=== PATIENT | female | born 1945 | race American Indian/Alaskan Native ===

== ENCOUNTER 2019-01-02 06:26 | Inpatient (IN) | payer OTHER ==
[2019-01-03 06:56] VITALS: BMI 31.8
[2019-01-03] MEDS: oxyCODONE 10 mg Immediate Release Tab PO PRN ×3 (10:19→21:40)
[2019-01-03] MEDS: Enoxaparin 30 mg Syringe SC SCH (10:20)
[2019-01-03] MEDS: Pantoprazole 40 mg EC Tab PO SCH (10:22)
[2019-01-03] MEDS: Docusate-Senna 50 mg-8.6 mg Tab PO SCH (10:22)
[2019-01-03] MEDS: oxyCODONE 5 mg Immediate Release Tab PO PRN ×2 (12:42→18:08)
[2019-01-03 21:28] LABS: SQUAMOUS EPITHIAL 2 /hpf (0-5); URINE BACTERIA RARE (<OCC); URINE BILIRUBIN NEGATIVE (NEGATIVE); URINE BLOOD NEGATIVE (NEGATIVE); URINE CLARITY CLOUDY (Clear); URINE COLOR YELLOW (YELLOW); URINE GLUCOSE (UA) NEG (NEGATIVE); URINE LEUKOCYTE ESTERASE SMALL Leu/uL (Negative); URINE PROTEIN NEGATIVE (NEGATIVE); URINE UROBILINOGEN 0.2-1.0 mg/dL (0.2-1.0)
[2019-01-04] MEDS: oxyCODONE 10 mg Immediate Release Tab PO PRN ×2 (08:24→23:04)
[2019-01-04] MEDS: Enoxaparin 30 mg Syringe SC SCH (08:26)
[2019-01-04] MEDS: Pantoprazole 40 mg EC Tab PO SCH (08:27)
[2019-01-04] MEDS: Docusate-Senna 50 mg-8.6 mg Tab PO SCH (08:28)
--- NOTE | 2019-01-04 15:55 | RAD ---
Date of service: 01/04/2019 HISTORY: distention of abdomen COMPARISON: None available. FINDINGS: BOWEL: Bowel gas pattern suggests ileus. No obstruction. No free air. BONES: Normal. OTHER FINDINGS: Haziness in the pelvis likely represents a distended urinary bladder. IMPRESSION: No evidence of mechanical bowel obstruction, free air or other acute pathologic process.
[2019-01-04] MEDS ORDERED: Alum-Mag Hydrox-Simethicone Susp (30 mL) PO ONE (21:12)
[2019-01-04] MEDS: Sucralfate 1 gm/10 ml Oral Susp UD PO SCH (22:36)
[2019-01-05] MEDS: oxyCODONE 5 mg Immediate Release Tab PO PRN (01:38)
[2019-01-05] MEDS: oxyCODONE 10 mg Immediate Release Tab PO PRN ×3 (05:38→20:23)
[2019-01-05] MEDS: Sucralfate 1 gm/10 ml Oral Susp UD PO SCH ×4 (09:08→21:16)
[2019-01-05] MEDS: Enoxaparin 30 mg Syringe SC SCH (09:12)
[2019-01-05] MEDS: Docusate-Senna 50 mg-8.6 mg Tab PO SCH (09:13)
[2019-01-05] MEDS: Pantoprazole 40 mg EC Tab PO SCH (09:13)
--- NOTE | 2019-01-05 12:01 | CP.PCM.HP ---
History of Present Illness - History of Present Illness History of Present Illness: Chief complaint: Right total knee arthroplasty History of present illness A 73 years old female with a history of right knee degenerative joint disease, varus deformity and synovitis underwent right total knee arthroplasty and open synovectomy on 12/30/2018. Patient was transferred to [facility] for subacute rehab. Currently patient is complaining epigastric pain 7-9/10 continuous, associated with nausea and constipation. Patient is currently on pain medication with narcotics. Denies fever/chills, vomiting or abdominal distention. Patient was given PPI and Carafate with some relief. Present on Admission - Present on Admission Any Indicators Present on Admission: No Review of Systems - Review of Systems All systems: reviewed and no additional remarkable complaints except Review of Systems: As per HPI Past Patient History - Past Medical History & Family History Past Medical History?: Yes Past Family History: Reviewed and not pertinent - Past Social History Smoking Status: Former Smoker Alcohol: None Drugs: Denies - CARDIAC Hx Hypercholesterolemia: Yes Hx Hypertension: Yes - PULMONARY Hx Chronic Obstructive Pulmonary Disease (COPD): Yes - NEUROLOGICAL Hx Neurological Disorder: No - HEENT Hx HEENT Problems: Yes Hx Cataracts: Yes (BILAT.) - RENAL Hx Chronic Kidney Disease: No - ENDOCRINE/METABOLIC Hx Endocrine Disorders: No - HEMATOLOGICAL/ONCOLOGICAL Hx Blood Disorders: No - INTEGUMENTARY Hx Dermatological Problems: No - MUSCULOSKELETAL/RHEUMATOLOGICAL Hx Arthritis: Yes (osteoarthritis) - GASTROINTESTINAL Hx Gastrointestinal Disorders: Yes - GENITOURINARY/GYNECOLOGICAL Hx Genitourinary Disorders: Yes Other/Comment: HX: FIBROID UTERUS - PSYCHIATRIC Hx Psychophysiologic Disorder: No Hx Substance Use: No - SURGICAL HISTORY Hx Surgeries: Yes Hx Cataract Extraction: Yes (BILAT.) Hx Hysterectomy: Yes (PARTIAL HYSTERECTOMY) Other/Comment: HX: "INJECTIONS TO RIGHT HIP AND LOWER BACK FOR PAIN" - ANESTHESIA Hx Anesthesia: Yes Hx Anesthesia Reactions: No Hx Malignant Hyperthermia: No Meds Allergies/Adverse Reactions: Allergies Allergy/AdvReac Type Severity Reaction Status Date / Time aspirin Allergy Intermediate NAUSEA Verified 10/06/18 11:35 bacitracin Allergy Intermediate RASH Verified 10/06/18 11:35 [From Neosporin ([id number])] neomycin Allergy Intermediate RASH Verified 10/06/18 11:35 [From Neosporin ([id number])] polymyxin B Allergy Intermediate RASH Verified 10/06/18 11:35 [From Neosporin ([id number])] Physical Exam - Constitutional Appears: No Acute Distress - Head Exam Head Exam: ATRAUMATIC, NORMAL INSPECTION, NORMOCEPHALIC - Eye Exam Eye Exam: EOMI, Normal appearance, PERRL Pupil Exam: NORMAL ACCOMODATION, PERRL - ENT Exam ENT Exam: Mucous Membranes Moist, Normal Exam - Neck Exam Neck exam: Positive for: Normal Inspection - Respiratory Exam Respiratory Exam: Clear to Auscultation Bilateral, NORMAL BREATHING PATTERN - Cardiovascular Exam Cardiovascular Exam: REGULAR RHYTHM, +S1, +S2 - GI/Abdominal Exam GI & Abdominal Exam: Normal Bowel Sounds, Soft, Tenderness (epigastric) - Extremities Exam Extremities exam: Positive for: normal capillary refill, normal inspection - Back Exam Back exam: NORMAL INSPECTION - Neurological Exam Neurological exam: Alert, CN II-XII Intact, Normal Gait, Oriented x3, Reflexes Normal - Psychiatric Exam Psychiatric exam: Normal Affect, Normal Mood - Skin Skin Exam: Dry, Intact, Normal Color, Warm Results - Vital Signs Recent Vital Signs: Last Vital Signs Temp 98.4 F 01/05/19 09:05 Pulse 76 01/05/19 09:13 Resp 20 01/05/19 09:05 BP 118/66 01/05/19 09:13 Pulse Ox 98 01/05/19 09:05 - Labs Result Diagrams: 01/06/19 13:56 01/06/19 13:56 Assessment & Plan (1) Abdominal pain Assessment and Plan: Most likely acute gastritis Status: Acute (2) Acute blood loss anemia Status: Acute (3) Status post total right knee replacement Assessment and Plan: With right synovectomy Status: Acute - Assessment and Plan (Free Text) Plan: Protonix Carafate Lactulose Fleet enema as needed CBCs, CMP, lipase Physiatry consult PT OT DVT prophylaxis
--- NOTE | 2019-01-05 12:01 | CP.PCM.PN ---
Subjective - Date & Time of Evaluation Date of Evaluation: 01/04/19 Objective - Vital Signs/Intake and Output Vital Signs (last 24 hours): Temp Pulse Resp BP Pulse Ox 98.4 F 76 20 118/66 98 01/05/19 09:05 01/05/19 09:13 01/05/19 09:05 01/05/19 09:13 01/05/19 09:05 - Medications Medications: Current Medications Acetaminophen (Tylenol 325mg Tab) 975 mg PO Q8 [facility] Last Admin: 01/05/19 09:55 Dose: Not Given Amlodipine Besylate (Norvasc) 5 mg PO DAILY [facility] Last Admin: 01/05/19 09:13 Dose: 5 mg Ascorbic Acid (Vitamin C 500 Mg Tab) 1,000 mg PO DAILY [facility] Last Admin: 01/05/19 09:14 Dose: 1,000 mg Atorvastatin Calcium (Lipitor) 10 mg PO HS [facility] Last Admin: 01/04/19 22:38 Dose: 10 mg Ciprofloxacin (Cipro) 500 mg PO Q24H [facility]; Protocol Last Admin: 01/04/19 17:35 Dose: 500 mg Clonidine HCl (Catapres) 0.1 mg PO BID [facility] Last Admin: 01/05/19 09:09 Dose: 0.1 mg Ezetimibe (Zetia) 10 mg PO DAILY [facility] Last Admin: 01/05/19 09:14 Dose: 10 mg Enoxaparin Sodium (Lovenox) 30 mg SC DAILY [facility]; Protocol Last Admin: 01/05/19 09:12 Dose: 30 mg Ferrous Sulfate (Feosol) 325 mg PO BID [facility] Last Admin: 01/05/19 09:12 Dose: 325 mg Folic Acid (Folic Acid) 1 mg PO DAILY [facility] Last Admin: 01/05/19 09:12 Dose: 1 mg Lactulose (Enulose) 20 gm PO DAILY PRN PRN Reason: Constipation Last Admin: 01/03/19 21:38 Dose: 20 gm Losartan Potassium (Cozaar) 100 mg PO DAILY [facility] Last Admin: 01/05/19 09:12 Dose: 100 mg Ondansetron HCl (Zofran Inj) 4 mg IVP Q6 PRN PRN Reason: Nausea/Vomiting Last Admin: 01/04/19 13:21 Dose: 4 mg Oxycodone HCl (Oxycodone Immediate Release Tab) 5 mg PO Q4 PRN PRN Reason: Pain, Mild (1-3) Last Admin: 01/05/19 01:38 Dose: 5 mg Oxycodone HCl (Oxycodone Immediate Release Tab) 10 mg PO Q4 PRN PRN Reason: Pain, severe (8-10) Last Admin: 01/05/19 09:55 Dose: 10 mg Pantoprazole Sodium (Protonix Ec Tab) 40 mg PO DAILY [facility] Last Admin: 01/05/19 09:13 Dose: 40 mg Phenazopyridine HCl (Pyridium) 200 mg PO TID [facility] Stop: 01/05/19 23:59 Last Admin: 01/05/19 09:13 Dose: 200 mg Senna/Docusate Sodium (Senokot S 50 Mg-8.6 Mg) 1 tab PO DAILY [facility] Last Admin: 01/05/19 09:13 Dose: 1 tab Sucralfate (Carafate Oral Susp) [address] [facility] Last Admin: 01/05/19 09:08 Dose: Not Given
[2019-01-05 12:19] LABS: HEMOGLOBIN 8.6 g/dL (12.0-16.0); MEAN CELL VOLUME 81.4 fl (81.0-99.0); MEAN CORPUSCULAR HEMOGLOBIN 26.8 pg (27.0-31.0); MEAN CORPUSCULAR HGB CONC 32.9 g/dL (33.0-37.0); RBC 3.23 Mil/uL (3.80-5.20); RED CELL DISTRIBUTION WIDTH 13.5 % (11.5-14.5); WHITE BLOOD COUNT 7.6 K/uL (4.8-10.8)
[2019-01-05 12:27] LABS: CALCIUM 8.5 mg/dL (8.4-10.2)
--- NOTE | 2019-01-05 13:19 | CP.PCM.PN ---
Subjective - Date & Time of Evaluation Date of Evaluation: 01/05/19 Time of Evaluation: 13:17 - Subjective Subjective: Patient states she doesn't feel well. She is having watery stools and abdominal pain. She had nausea and vomiting, but that is now improving. Knee pain is controlled, tolerating PT well. Objective - Vital Signs/Intake and Output Vital Signs (last 24 hours): Temp Pulse Resp BP Pulse Ox 98.4 F 76 20 118/66 98 01/05/19 09:05 01/05/19 09:13 01/05/19 09:05 01/05/19 09:13 01/05/19 09:05 - Medications Medications: Current Medications Acetaminophen (Tylenol 325mg Tab) 975 mg PO Q8 [facility] Last Admin: 01/05/19 09:55 Dose: Not Given Amlodipine Besylate (Norvasc) 5 mg PO DAILY [facility] Last Admin: 01/05/19 09:13 Dose: 5 mg Ascorbic Acid (Vitamin C 500 Mg Tab) 1,000 mg PO DAILY [facility] Last Admin: 01/05/19 09:14 Dose: 1,000 mg Atorvastatin Calcium (Lipitor) 10 mg PO HS [facility] Last Admin: 01/04/19 22:38 Dose: 10 mg Ciprofloxacin (Cipro) 500 mg PO Q24H [facility]; Protocol Last Admin: 01/04/19 17:35 Dose: 500 mg Clonidine HCl (Catapres) 0.1 mg PO BID [facility] Last Admin: 01/05/19 09:09 Dose: 0.1 mg Ezetimibe (Zetia) 10 mg PO DAILY [facility] Last Admin: 01/05/19 09:14 Dose: 10 mg Enoxaparin Sodium (Lovenox) 30 mg SC DAILY [facility]; Protocol Last Admin: 01/05/19 09:12 Dose: 30 mg Ferrous Sulfate (Feosol) 325 mg PO BID [facility] Last Admin: 01/05/19 09:12 Dose: 325 mg Folic Acid (Folic Acid) 1 mg PO DAILY [facility] Last Admin: 01/05/19 09:12 Dose: 1 mg Lactulose (Enulose) 20 gm PO DAILY PRN PRN Reason: Constipation Last Admin: 01/03/19 21:38 Dose: 20 gm Losartan Potassium (Cozaar) 100 mg PO DAILY [facility] Last Admin: 01/05/19 09:12 Dose: 100 mg Ondansetron HCl (Zofran Inj) 4 mg IVP Q6 PRN PRN Reason: Nausea/Vomiting Last Admin: 01/04/19 13:21 Dose: 4 mg Oxycodone HCl (Oxycodone Immediate Release Tab) 5 mg PO Q4 PRN PRN Reason: Pain, Mild (1-3) Last Admin: 01/05/19 01:38 Dose: 5 mg Oxycodone HCl (Oxycodone Immediate Release Tab) 10 mg PO Q4 PRN PRN Reason: Pain, severe (8-10) Last Admin: 01/05/19 09:55 Dose: 10 mg Pantoprazole Sodium (Protonix Ec Tab) 40 mg PO DAILY [facility] Last Admin: 01/05/19 09:13 Dose: 40 mg Phenazopyridine HCl (Pyridium) 200 mg PO TID [facility] Stop: 01/05/19 23:59 Last Admin: 01/05/19 09:13 Dose: 200 mg Senna/Docusate Sodium (Senokot S 50 Mg-8.6 Mg) 1 tab PO DAILY [facility] Last Admin: 01/05/19 09:13 Dose: 1 tab Sucralfate (Carafate Oral Susp) 1 gm PO ACHS [facility] Last Admin: 01/05/19 12:04 Dose: 1 gm - Labs Labs: 01/05/19 12:05 01/05/19 12:05 - Extremities Exam Additional comments: RLE: dressing changed. Incision intact, dry mild incisional erythema, mild swelling, calves sfot NT neg homans +ROM ankle/toes, sensation intact, +Dp/PT pulses Assessment and Plan (1) Osteoarthritis of right knee Assessment & Plan: POD#6 s/p right TKR VTE proph PT/OT orthopedically stable ice labs ordered monitor h/h, Cr improving, BUN still high, Na normalized encourage PO intake abd xray reviewed, no ilius/obstruction/free air, likely secondary after enema d/w Dr. Hinkle, agrees with above Status: Acute (2) Acute blood loss anemia Assessment & Plan: f/u labs Status: Acute
--- NOTE | 2019-01-05 13:30 | CP.PCM.CON ---
History of Present Illness - History of Present Illness History of Present Illness: Dr Dominguez PMR consultation on Alysha Avalos, born 1945 who has been admitted to [facility] for [facility]ITLY[facility] following an elective right TKR. She has failed conservative and interventional care in the past. Post op pain is fairly well controlled. Review of Systems - Constitutional Constitutional: absent: Chills - EENT Eyes: absent: Change in Vision Ears: absent: Ear Discharge, Ear Pain Nose/Mouth/Throat: absent: Nasal Congestion, Nasal Discharge, Bleeding Gums - Cardiovascular Cardiovascular: absent: Chest Pain - Respiratory Respiratory: absent: Dyspnea, Hemoptysis - Gastrointestinal Gastrointestinal: Other (watery stool. ) - Integumentary Integumentary: absent: Bleeding Lesions - Neurological Neurological: absent: Abnormal Movements, Numbness Past Patient History - Past Medical History & Family History Past Medical History?: Yes - Past Social History Smoking Status: Former Smoker Alcohol: None Drugs: Denies Home Situation {Lives}: Alone (entry steps) - CARDIAC Hx Hypercholesterolemia: Yes Hx Hypertension: Yes - PULMONARY Hx Chronic Obstructive Pulmonary Disease (COPD): Yes - NEUROLOGICAL Hx Neurological Disorder: No - HEENT Hx HEENT Problems: Yes Hx Cataracts: Yes (BILAT.) - RENAL Hx Chronic Kidney Disease: No - ENDOCRINE/METABOLIC Hx Endocrine Disorders: No - HEMATOLOGICAL/ONCOLOGICAL Hx Blood Disorders: No - INTEGUMENTARY Hx Dermatological Problems: No - MUSCULOSKELETAL/RHEUMATOLOGICAL Hx Arthritis: Yes (osteoarthritis) - GASTROINTESTINAL Hx Gastrointestinal Disorders: Yes - GENITOURINARY/GYNECOLOGICAL Hx Genitourinary Disorders: Yes Other/Comment: HX: FIBROID UTERUS - PSYCHIATRIC Hx Psychophysiologic Disorder: No Hx Substance Use: No - SURGICAL HISTORY Hx Surgeries: Yes Hx Cataract Extraction: Yes (BILAT.) Hx Hysterectomy: Yes (PARTIAL HYSTERECTOMY) Other/Comment: HX: "INJECTIONS TO RIGHT HIP AND LOWER BACK FOR PAIN" - ANESTHESIA Hx Anesthesia: Yes Hx Anesthesia Reactions: No Hx Malignant Hyperthermia: No Meds Allergies/Adverse Reactions: Allergies Allergy/AdvReac Type Severity Reaction Status Date / Time aspirin Allergy Intermediate NAUSEA Verified 10/06/18 11:35 bacitracin Allergy Intermediate RASH Verified 10/06/18 11:35 [From Neosporin ([id number])] neomycin Allergy Intermediate RASH Verified 10/06/18 11:35 [From Neosporin ([id number])] polymyxin B Allergy Intermediate RASH Verified 10/06/18 11:35 [From Neosporin ([id number])] - Medications Medications: Current Medications Acetaminophen (Tylenol 325mg Tab) 975 mg PO Q8 [facility] Last Admin: 01/05/19 09:55 Dose: Not Given Amlodipine Besylate (Norvasc) 5 mg PO DAILY [facility] Last Admin: 01/05/19 09:13 Dose: 5 mg Ascorbic Acid (Vitamin C 500 Mg Tab) 1,000 mg PO DAILY [facility] Last Admin: 01/05/19 09:14 Dose: 1,000 mg Atorvastatin Calcium (Lipitor) 10 mg PO HS [facility] Last Admin: 01/04/19 22:38 Dose: 10 mg Ciprofloxacin (Cipro) 500 mg PO Q24H [facility]; Protocol Last Admin: 01/04/19 17:35 Dose: 500 mg Clonidine HCl (Catapres) 0.1 mg PO BID [facility] Last Admin: 01/05/19 09:09 Dose: 0.1 mg Ezetimibe (Zetia) 10 mg PO DAILY [facility] Last Admin: 01/05/19 09:14 Dose: 10 mg Enoxaparin Sodium (Lovenox) 30 mg SC DAILY [facility]; Protocol Last Admin: 01/05/19 09:12 Dose: 30 mg Ferrous Sulfate (Feosol) 325 mg PO BID [facility] Last Admin: 01/05/19 09:12 Dose: 325 mg Folic Acid (Folic Acid) 1 mg PO DAILY [facility] Last Admin: 01/05/19 09:12 Dose: 1 mg Lactulose (Enulose) 20 gm PO DAILY PRN PRN Reason: Constipation Last Admin: 01/03/19 21:38 Dose: 20 gm Losartan Potassium (Cozaar) 100 mg PO DAILY [facility] Last Admin: 01/05/19 09:12 Dose: 100 mg Ondansetron HCl (Zofran Inj) 4 mg IVP Q6 PRN PRN Reason: Nausea/Vomiting Last Admin: 01/04/19 13:21 Dose: 4 mg Oxycodone HCl (Oxycodone Immediate Release Tab) 5 mg PO Q4 PRN PRN Reason: Pain, Mild (1-3) Last Admin: 01/05/19 01:38 Dose: 5 mg Oxycodone HCl (Oxycodone Immediate Release Tab) 10 mg PO Q4 PRN PRN Reason: Pain, severe (8-10) Last Admin: 01/05/19 09:55 Dose: 10 mg Pantoprazole Sodium (Protonix Ec Tab) 40 mg PO DAILY [facility] Last Admin: 01/05/19 09:13 Dose: 40 mg Phenazopyridine HCl (Pyridium) 200 mg PO TID [facility] Stop: 01/05/19 23:59 Last Admin: 01/05/19 09:13 Dose: 200 mg Senna/Docusate Sodium (Senokot S 50 Mg-8.6 Mg) 1 tab PO DAILY [facility] Last Admin: 01/05/19 09:13 Dose: 1 tab Sucralfate (Carafate Oral Susp) 1 gm PO ACHS [facility] Last Admin: 01/05/19 12:04 Dose: 1 gm Physical Exam - Constitutional Appears: No Acute Distress - Head Exam Head Exam: ATRAUMATIC, NORMAL INSPECTION, NORMOCEPHALIC - Eye Exam Eye Exam: EOMI - ENT Exam ENT Exam: Mucous Membranes Moist - Respiratory Exam Respiratory Exam: NORMAL BREATHING PATTERN - Cardiovascular Exam Cardiovascular Exam: REGULAR RHYTHM - GI/Abdominal Exam GI & Abdominal Exam: Normal Bowel Sounds. absent: Firm, Guarding, Hernia - Neurological Exam Neurological exam: Alert, CN II-XII Intact, Oriented x3 - Psychiatric Exam Psychiatric exam: Normal Affect, Normal Mood - Skin Skin Exam: Warm Results - Vital Signs Recent Vital Signs: Last Vital Signs Temp 98.4 F 01/05/19 09:05 Pulse 76 01/05/19 09:13 Resp 20 01/05/19 09:05 BP 118/66 01/05/19 09:13 Pulse Ox 98 01/05/19 09:05 - Labs Result Diagrams: 01/05/19 12:05 01/05/19 12:05 Labs: Laboratory Results - last 24 hr 01/05/19 01/05/19 12:05 12:05 WBC 7.6 RBC 3.23 L Hgb 8.6 L Hct 26.3 L MCV 81.4 MCH 26.8 L MCHC 32.9 L RDW 13.5 Plt Count 302 Sodium 132 Potassium 3.5 L Chloride 90 L Carbon Dioxide 28 Anion Gap 18 BUN 30 H Creatinine 1.3 H Est GFR ( Amer) 49 Est GFR (Non-Af Amer) 40 Random Glucose 114 H Calcium 8.5 Assessment & Plan - Assessment and Plan (Free Text) Assessment: 73 year old female who is s/p right TKR, elective Pain is fairly well controlled has watery stool but she denies this is an actual bowel movement and feels she is more constipated than diarrhea. X-ray did not show evidence of any significant bowel obstruction. PT/OT to continue to help increase functional independence Team conference for d/c planning Pain: controlled Vascular: no evidence of DVT GI:appears to have loose BM but she claims is constipation. X-ray did not show evidence of SURY
[2019-01-05 19:43] VITALS: RESP 20
--- NOTE | 2019-01-06 00:06 | CP.PCM.PN ---
Subjective - Date & Time of Evaluation Date of Evaluation: 01/05/19 Time of Evaluation: 18:30 Objective - Vital Signs/Intake and Output Vital Signs (last 24 hours): Temp Pulse Resp BP Pulse Ox 98.7 F 71 20 144/69 94 L 01/05/19 19:42 01/05/19 19:42 01/05/19 19:42 01/05/19 19:42 01/05/19 19:42 - Medications Medications: Current Medications Acetaminophen (Tylenol 325mg Tab) 975 mg PO Q8 [facility] Last Admin: 01/05/19 17:04 Dose: 975 mg Amlodipine Besylate (Norvasc) 5 mg PO DAILY [facility] Last Admin: 01/05/19 09:13 Dose: 5 mg Ascorbic Acid (Vitamin C 500 Mg Tab) 1,000 mg PO DAILY [facility] Last Admin: 01/05/19 09:14 Dose: 1,000 mg Atorvastatin Calcium (Lipitor) 10 mg PO HS [facility] Last Admin: 01/05/19 21:16 Dose: 10 mg Ciprofloxacin (Cipro) 500 mg PO Q24H [facility]; Protocol Last Admin: 01/05/19 17:02 Dose: 500 mg Clonidine HCl (Catapres) 0.1 mg PO BID [facility] Last Admin: 01/05/19 17:02 Dose: 0.1 mg Ezetimibe (Zetia) 10 mg PO DAILY [facility] Last Admin: 01/05/19 09:14 Dose: 10 mg Enoxaparin Sodium (Lovenox) 30 mg SC DAILY [facility]; Protocol Last Admin: 01/05/19 09:12 Dose: 30 mg Ferrous Sulfate (Feosol) 325 mg PO BID [facility] Last Admin: 01/05/19 17:02 Dose: 325 mg Folic Acid (Folic Acid) 1 mg PO DAILY [facility] Last Admin: 01/05/19 09:12 Dose: 1 mg Lactulose (Enulose) 20 gm PO DAILY PRN PRN Reason: Constipation Last Admin: 01/03/19 21:38 Dose: 20 gm Losartan Potassium (Cozaar) 100 mg PO DAILY [facility] Last Admin: 01/05/19 09:12 Dose: 100 mg Ondansetron HCl (Zofran Inj) 4 mg IVP Q6 PRN PRN Reason: Nausea/Vomiting Last Admin: 01/04/19 13:21 Dose: 4 mg Oxycodone HCl (Oxycodone Immediate Release Tab) 5 mg PO Q4 PRN PRN Reason: Pain, Mild (1-3) Last Admin: 01/05/19 01:38 Dose: 5 mg Oxycodone HCl (Oxycodone Immediate Release Tab) 10 mg PO Q4 PRN PRN Reason: Pain, severe (8-10) Last Admin: 01/05/19 20:23 Dose: 10 mg Pantoprazole Sodium (Protonix Ec Tab) 40 mg PO DAILY [facility] Last Admin: 01/05/19 09:13 Dose: 40 mg Senna/Docusate Sodium (Senokot S 50 Mg-8.6 Mg) 1 tab PO DAILY [facility] Last Admin: 01/05/19 09:13 Dose: 1 tab Sucralfate (Carafate Oral Susp) 1 gm PO ACHS [facility] Last Admin: 01/05/19 21:16 Dose: 1 gm - Labs Labs: 01/05/19 12:05 01/05/19 12:05
[2019-01-06] MEDS: oxyCODONE 10 mg Immediate Release Tab PO PRN (01:53)
[2019-01-06] MEDS ORDERED: Potassium Ch 20mEq in D5-1/2NS 1,000 ML IV SCH ×3 (04:45→06:06)
--- NOTE | 2019-01-06 05:08 | CP.PCM.PCO ---
Addendum Addendum: 01/06/19 04:46 The life insurance underwriter was called on this 73 y/o F due to intolerable lower abdominal pain. Pt described pain as cramping and sharp, 10/10 intensity, radiated to her back and aggravated with bearing down to urinate or passing gas. Pt reports unable to have a BM since 1 week ago. Pt was given 10mg of Oxycodone ~3 hours ago with aggravation of pain. Pt was given laxatives yesterday. Pt is unable to pass gasses due to pain. Pt afebrile tolerating PO. --Vital signs unremarkable --Physical exam: Pt lying down, uncomfortable, in excruciating abdominal pain; abdomen is soft, non-distended, very tender on b/l lower quadrants, hyperactive bowel sounds. PLAN: (restricted assessment of patient since no completed H&P) >73 y/o F with presumed PMHx of HTN, COPD, HLD admitted to TCU s/p TKR, complains of intolerable lower abdominal pain and not controlled with opioid. --Will order IV Toradol and PO Bentyl. --IV Fluids: D5-1/2NS-20mEq KCL at 180mL/hr. (Even though increased creatinine and reduced GFR, there is NO apparent Hx of renal failure. Abnormal renal function test may be due to YAA caused by dehydration. IV fluids ordered. No apparent Hx of CHF; hence fluids will run at 1.5x maintenance. Will add potassium to IV fluids since mild hypokalemia yesterday labs. Opioid aggravated pain, which may have caused more constipation)
[2019-01-06] MEDS: Sucralfate 1 gm/10 ml Oral Susp UD PO SCH ×4 (06:29→21:16)
[2019-01-06] MEDS: Enoxaparin 30 mg Syringe SC SCH (09:29)
[2019-01-06] MEDS: Docusate-Senna 50 mg-8.6 mg Tab PO SCH ×2 (09:31→21:16)
[2019-01-06] MEDS: Pantoprazole 40 mg EC Tab PO SCH (09:31)
--- NOTE | 2019-01-06 13:26 | CP.PCM.PN ---
Subjective - Date & Time of Evaluation Date of Evaluation: 01/06/19 Time of Evaluation: 13:24 - Subjective Subjective: Patient seen and examined at bedside. Pain at knee well controlled. C/o lower abdominal pain, no longer vomitting, loose stools following enema x 2. Tolerating PT and CPM well. Objective - Vital Signs/Intake and Output Vital Signs (last 24 hours): Temp Pulse Resp BP Pulse Ox 98.1 F 80 20 149/67 95 01/06/19 09:00 01/06/19 10:00 01/06/19 09:00 01/06/19 09:31 01/06/19 10:00 - Medications Medications: Current Medications Acetaminophen (Tylenol 325mg Tab) 975 mg PO Q8 [facility] Last Admin: 01/06/19 09:37 Dose: 975 mg Amlodipine Besylate (Norvasc) 5 mg PO DAILY [facility] Last Admin: 01/06/19 09:31 Dose: 5 mg Ascorbic Acid (Vitamin C 500 Mg Tab) 1,000 mg PO DAILY [facility] Last Admin: 01/06/19 09:29 Dose: 1,000 mg Atorvastatin Calcium (Lipitor) 10 mg PO HS [facility] Last Admin: 01/05/19 21:16 Dose: 10 mg Ciprofloxacin (Cipro) 500 mg PO Q24H [facility]; Protocol Last Admin: 01/05/19 17:02 Dose: 500 mg Clonidine HCl (Catapres) 0.1 mg PO BID [facility] Last Admin: 01/06/19 09:30 Dose: 0.1 mg Ezetimibe (Zetia) 10 mg PO DAILY [facility] Last Admin: 01/06/19 09:31 Dose: 10 mg Enoxaparin Sodium (Lovenox) 30 mg SC DAILY [facility]; Protocol Last Admin: 01/06/19 09:29 Dose: 30 mg Ferrous Sulfate (Feosol) 325 mg PO BID [facility] Last Admin: 01/06/19 09:36 Dose: 325 mg Folic Acid (Folic Acid) 1 mg PO DAILY [facility] Last Admin: 01/06/19 09:32 Dose: 1 mg Potassium Chloride/Dextrose/Sod Cl (Potassium Chl 20 Meq In D5-1/2ns) 1,000 mls @ 110 mls/hr IV .Q9H6M [facility] Stop: 01/06/19 15:11 Last Admin: 01/06/19 06:14 Dose: 110 mls/hr Lactulose (Enulose) 20 gm PO DAILY PRN PRN Reason: Constipation Last Admin: 01/03/19 21:38 Dose: 20 gm Losartan Potassium (Cozaar) 100 mg PO DAILY [facility] Last Admin: 01/06/19 09:29 Dose: 100 mg Ondansetron HCl (Zofran Inj) 4 mg IVP Q6 PRN PRN Reason: Nausea/Vomiting Last Admin: 01/06/19 11:01 Dose: 4 mg Oxycodone HCl (Oxycodone Immediate Release Tab) 5 mg PO Q4 PRN PRN Reason: Pain, Mild (1-3) Last Admin: 01/05/19 01:38 Dose: 5 mg Oxycodone HCl (Oxycodone Immediate Release Tab) 10 mg PO Q4 PRN PRN Reason: Pain, severe (8-10) Last Admin: 01/06/19 01:53 Dose: 10 mg Pantoprazole Sodium (Protonix Ec Tab) 40 mg PO DAILY [facility] Last Admin: 01/06/19 09:31 Dose: 40 mg Senna/Docusate Sodium (Senokot S 50 Mg-8.6 Mg) 1 tab PO DAILY [facility] Last Admin: 01/06/19 09:31 Dose: 1 tab Senna/Docusate Sodium (Senokot S 50 Mg-8.6 Mg) 2 tab PO HS [facility] Sucralfate (Carafate Oral Susp) 1 gm PO ACHS [facility] Last Admin: 01/06/19 12:49 Dose: 1 gm - Labs Labs: 01/05/19 12:05 01/05/19 12:05 - Extremities Exam Additional comments: R knee: Dressings CDI minimal knee tenderness ROM 0-70 deg measured by goniometer sensation intact SP/DP/TN motor intact EHL/FHL/TA/G/Q/HS pedal pulse intact calves soft NT Assessment and Plan (1) Status post total right knee replacement Assessment & Plan: POD#7 s/p R TKA -will give simethicone for abdominal pain -PT/OT -CPM/knee imm as per order -DVT ppx -above d/w Dr. Hinkle in agreement Status: Acute
[2019-01-06] MEDS ORDERED: Simethicone 80 mg Chewtab PO PRN (13:35)
[2019-01-06 14:31] LABS: ALB/GLOB RATIO 0.9 (1.0-2.1); CALCIUM 8.6 mg/dL (8.4-10.2)
[2019-01-06 14:34] LABS: BASO # 0.1 K/uL (0.0-0.2); BASO % 0.7 % (0.0-2.0); EOS # 0.1 K/uL (0.0-0.7); EOS % 0.8 % (0.0-4.0); HEMOGLOBIN 8.3 g/dL (12.0-16.0); MEAN CELL VOLUME 82.8 fl (81.0-99.0); MEAN CORPUSCULAR HGB CONC 32.7 g/dL (33.0-37.0); MONO # 1.4 K/uL (0.0-0.8); MONO % 15.8 % (0.0-10.0); NEUT # 6.2 K/uL (1.8-7.0); NEUT % 71.7 % (50.0-75.0); NRBC % 0.2 % (0.0-0.0); RBC 3.08 Mil/uL (3.80-5.20); RED CELL DISTRIBUTION WIDTH 13.7 % (11.5-14.5); WHITE BLOOD COUNT 8.7 K/uL (4.8-10.8)
[2019-01-06] MEDS: Sodium Chloride 0.9% 1,000 ML IV SCH (16:37)
--- NOTE | 2019-01-06 17:34 | CP.PCM.PN ---
Subjective - Date & Time of Evaluation Date of Evaluation: 01/06/19 Time of Evaluation: 17:33 - Subjective Subjective: Alysha Avalos, born 1945 who has been admitted to [facility] for CAITLYN following an elective right TKR. She has failed conservative and interventional care in the past. Post op pain is fairly well controlled. Still having bowel issues and has had multiple fleets enemas and oral meds. nursing reports increasing amounts of stool but pasty not formed. x-ray was negative for obstruction Objective - Vital Signs/Intake and Output Vital Signs (last 24 hours): Temp Pulse Resp BP Pulse Ox 98.1 F 72 20 149/53 L 95 01/06/19 09:00 01/06/19 16:38 01/06/19 09:00 01/06/19 16:38 01/06/19 10:00 - Medications Medications: Current Medications Acetaminophen (Tylenol 325mg Tab) 975 mg PO Q8 [facility] Last Admin: 01/06/19 16:42 Dose: 975 mg Amlodipine Besylate (Norvasc) 5 mg PO DAILY [facility] Last Admin: 01/06/19 09:31 Dose: 5 mg Ascorbic Acid (Vitamin C 500 Mg Tab) 1,000 mg PO DAILY [facility] Last Admin: 01/06/19 09:29 Dose: 1,000 mg Atorvastatin Calcium (Lipitor) 10 mg PO HS [facility] Last Admin: 01/05/19 21:16 Dose: 10 mg Ciprofloxacin (Cipro) 500 mg PO Q24H [facility]; Protocol Last Admin: 01/06/19 17:03 Dose: 500 mg Clonidine HCl (Catapres) 0.1 mg PO BID [facility] Last Admin: 01/06/19 16:38 Dose: 0.1 mg Ezetimibe (Zetia) 10 mg PO DAILY [facility] Last Admin: 01/06/19 09:31 Dose: 10 mg Enoxaparin Sodium (Lovenox) 30 mg SC DAILY [facility]; Protocol Last Admin: 01/06/19 09:29 Dose: 30 mg Ferrous Sulfate (Feosol) 325 mg PO BID [facility] Last Admin: 01/06/19 16:42 Dose: 325 mg Folic Acid (Folic Acid) 1 mg PO DAILY [facility] Last Admin: 01/06/19 09:32 Dose: 1 mg Sodium Chloride (Sodium Chloride 0.9%) 1,000 mls @ 100 mls/hr IV .Q10H [facility] Stop: 01/08/19 15:29 Last Admin: 01/06/19 16:37 Dose: 100 mls/hr Lactulose (Enulose) 20 gm PO DAILY PRN PRN Reason: Constipation Last Admin: 01/03/19 21:38 Dose: 20 gm Losartan Potassium (Cozaar) 100 mg PO DAILY [facility] Last Admin: 01/06/19 09:29 Dose: 100 mg Ondansetron HCl (Zofran Inj) 4 mg IVP Q6 PRN PRN Reason: Nausea/Vomiting Last Admin: 01/06/19 11:01 Dose: 4 mg Oxycodone HCl (Oxycodone Immediate Release Tab) 5 mg PO Q4 PRN PRN Reason: Pain, Mild (1-3) Last Admin: 01/05/19 01:38 Dose: 5 mg Oxycodone HCl (Oxycodone Immediate Release Tab) 10 mg PO Q4 PRN PRN Reason: Pain, severe (8-10) Last Admin: 01/06/19 01:53 Dose: 10 mg Pantoprazole Sodium (Protonix Ec Tab) 40 mg PO DAILY [facility] Last Admin: 01/06/19 09:31 Dose: 40 mg Senna/Docusate Sodium (Senokot S 50 Mg-8.6 Mg) 1 tab PO DAILY [facility] Last Admin: 01/06/19 09:31 Dose: 1 tab Senna/Docusate Sodium (Senokot S 50 Mg-8.6 Mg) 2 tab PO HS [facility] Simethicone (Mylicon Chew Tab) 80 mg PO Q8 PRN PRN Reason: Flatulence Sucralfate (Carafate Oral Susp) 1 gm PO ACHS [facility] Last Admin: 01/06/19 16:37 Dose: 1 gm - Labs Labs: 01/06/19 13:56 01/06/19 13:56 - Constitutional Appears: Other (not comfortable and states has abdominal discomfort) - Head Exam Head Exam: ATRAUMATIC, NORMAL INSPECTION, NORMOCEPHALIC - Eye Exam Eye Exam: EOMI - ENT Exam ENT Exam: Mucous Membranes Moist - Respiratory Exam Respiratory Exam: NORMAL BREATHING PATTERN - Cardiovascular Exam Cardiovascular Exam: REGULAR RHYTHM - GI/Abdominal Exam GI & Abdominal Exam: Distended, Tenderness. absent: Guarding - Neurological Exam Neurological Exam: Alert, CN II-XII Intact Assessment and Plan - Assessment and Plan (Free Text) Assessment: 73 year old female s/p right TKR PT/OT to continue to help increase functional independence Team conference for d/c planning Pain: controlled Vascular: no evidence of DVT GI: + stool with enema and oral meds but still with discomfort. x-ray negative for obstruction Patient continues to be an excellent TCU rehabilitation candidate and will have continued focused PT, OT and recreational therapy to help facilitate a safe and appropriate d/c plan
[2019-01-07] MEDS: Sodium Chloride 0.9% 1,000 ML IV SCH ×2 (00:32→11:27)
[2019-01-07] MEDS: oxyCODONE 10 mg Immediate Release Tab PO PRN ×3 (01:00→16:32)
[2019-01-07] MEDS: Sucralfate 1 gm/10 ml Oral Susp UD PO SCH ×4 (06:53→22:47)
[2019-01-07] MEDS: Enoxaparin 30 mg Syringe SC SCH (09:04)
[2019-01-07] MEDS: Pantoprazole 40 mg EC Tab PO SCH (09:06)
--- NOTE | 2019-01-07 09:10 | CP.PCM.PN ---
Subjective - Date & Time of Evaluation Date of Evaluation: 01/07/19 Time of Evaluation: 08:30 - Subjective Subjective: Patient seen and examined at bedside. Pain well controlled for R knee. C/o severe abdominal pain despite enema x2 and stool softeners. Improved N/V. Objective - Vital Signs/Intake and Output Vital Signs (last 24 hours): Temp Pulse Resp BP Pulse Ox 98.6 F 76 20 169/65 H 100 01/07/19 08:08 01/07/19 08:08 01/07/19 08:08 01/07/19 08:08 01/07/19 08:08 - Medications Medications: Current Medications Acetaminophen (Tylenol 325mg Tab) 975 mg PO Q8 [facility] Last Admin: 01/07/19 00:20 Dose: Not Given Amlodipine Besylate (Norvasc) 5 mg PO DAILY [facility] Last Admin: 01/06/19 09:31 Dose: 5 mg Ascorbic Acid (Vitamin C 500 Mg Tab) 1,000 mg PO DAILY [facility] Last Admin: 01/06/19 09:29 Dose: 1,000 mg Atorvastatin Calcium (Lipitor) 10 mg PO HS [facility] Last Admin: 01/06/19 21:15 Dose: 10 mg Ciprofloxacin (Cipro) 500 mg PO Q24H [facility]; Protocol Last Admin: 01/06/19 17:03 Dose: 500 mg Clonidine HCl (Catapres) 0.1 mg PO BID [facility] Last Admin: 01/06/19 16:38 Dose: 0.1 mg Ezetimibe (Zetia) 10 mg PO DAILY [facility] Last Admin: 01/06/19 09:31 Dose: 10 mg Enoxaparin Sodium (Lovenox) 30 mg SC DAILY [facility]; Protocol Last Admin: 01/06/19 09:29 Dose: 30 mg Ferrous Sulfate (Feosol) 325 mg PO BID [facility] Last Admin: 01/06/19 16:42 Dose: 325 mg Folic Acid (Folic Acid) 1 mg PO DAILY [facility] Last Admin: 01/06/19 09:32 Dose: 1 mg Sodium Chloride (Sodium Chloride 0.9%) 1,000 mls @ 100 mls/hr IV .Q10H [facility] Stop: 01/08/19 15:29 Last Admin: 01/07/19 00:32 Dose: 100 mls/hr Lactulose (Enulose) 20 gm PO DAILY PRN PRN Reason: Constipation Last Admin: 01/03/19 21:38 Dose: 20 gm Losartan Potassium (Cozaar) 100 mg PO DAILY [facility] Last Admin: 01/06/19 09:29 Dose: 100 mg Ondansetron HCl (Zofran Inj) 4 mg IVP Q6 PRN PRN Reason: Nausea/Vomiting Last Admin: 01/06/19 11:01 Dose: 4 mg Oxycodone HCl (Oxycodone Immediate Release Tab) 5 mg PO Q4 PRN PRN Reason: Pain, Mild (1-3) Last Admin: 01/05/19 01:38 Dose: 5 mg Oxycodone HCl (Oxycodone Immediate Release Tab) 10 mg PO Q4 PRN PRN Reason: Pain, severe (8-10) Last Admin: 01/07/19 01:00 Dose: 10 mg Pantoprazole Sodium (Protonix Ec Tab) 40 mg PO DAILY [facility] Last Admin: 01/06/19 09:31 Dose: 40 mg Senna/Docusate Sodium (Senokot S 50 Mg-8.6 Mg) 1 tab PO DAILY [facility] Last Admin: 01/06/19 09:31 Dose: 1 tab Senna/Docusate Sodium (Senokot S 50 Mg-8.6 Mg) 2 tab PO HS [facility] Last Admin: 01/06/19 21:16 Dose: 2 tab Simethicone (Mylicon Chew Tab) 80 mg PO Q8 PRN PRN Reason: Flatulence Sucralfate (Carafate Oral Susp) 1 gm PO ACHS [facility] Last Admin: 01/07/19 06:53 Dose: 1 gm - Labs Labs: 01/06/19 13:56 01/06/19 13:56 - Extremities Exam Additional comments: R knee: Dressings CDI minimal knee tenderness ROM 0-70 deg measured by goniometer sensation intact SP/DP/TN motor intact EHL/FHL/TA/G/Q/HS pedal pulse intact calves soft NT Assessment and Plan (1) Status post total right knee replacement Assessment & Plan: POD#8 s/p R TKA -General surgery consult ordered for abd pain -PT/OT -CPM/knee imm as per order -DVT ppx -above d/w Dr. Hinkle in agreement Status: Acute
[2019-01-07] MEDS: Docusate-Senna 50 mg-8.6 mg Tab PO SCH ×2 (09:11→23:37)
--- NOTE | 2019-01-07 17:56 | CP.PCM.PN ---
Subjective - Date & Time of Evaluation Date of Evaluation: 01/07/19 Time of Evaluation: 17:55 - Subjective Subjective: patient feels a little better today denies sob/cp had a BM pain in leg is fairly well controlled Objective - Vital Signs/Intake and Output Vital Signs (last 24 hours): Temp Pulse Resp BP Pulse Ox 98.9 F 67 20 162/67 H 100 01/07/19 17:01 01/07/19 17:01 01/07/19 17:01 01/07/19 17:01 01/07/19 17:01 - Medications Medications: Current Medications Acetaminophen (Tylenol 325mg Tab) 975 mg PO Q8 [facility] Last Admin: 01/07/19 16:35 Dose: Not Given Amlodipine Besylate (Norvasc) 5 mg PO DAILY [facility] Last Admin: 01/07/19 09:06 Dose: 5 mg Ascorbic Acid (Vitamin C 500 Mg Tab) 1,000 mg PO DAILY [facility] Last Admin: 01/07/19 09:05 Dose: 1,000 mg Atorvastatin Calcium (Lipitor) 10 mg PO HS [facility] Last Admin: 01/06/19 21:15 Dose: 10 mg Ciprofloxacin (Cipro) 500 mg PO Q24H [facility]; Protocol Last Admin: 01/06/19 17:03 Dose: 500 mg Clonidine HCl (Catapres) 0.1 mg PO BID [facility] Last Admin: 01/07/19 16:35 Dose: 0.1 mg Ezetimibe (Zetia) 10 mg PO DAILY [facility] Last Admin: 01/07/19 09:08 Dose: 10 mg Enoxaparin Sodium (Lovenox) 30 mg SC DAILY [facility]; Protocol Last Admin: 01/07/19 09:04 Dose: 30 mg Ferrous Sulfate (Feosol) 325 mg PO BID [facility] Last Admin: 01/07/19 16:33 Dose: 325 mg Folic Acid (Folic Acid) 1 mg PO DAILY [facility] Last Admin: 01/07/19 09:07 Dose: 1 mg Sodium Chloride (Sodium Chloride 0.9%) 1,000 mls @ 100 mls/hr IV .Q10H [facility] Stop: 01/08/19 15:29 Last Admin: 01/07/19 11:27 Dose: Not Given Lactulose (Enulose) 20 gm PO DAILY PRN PRN Reason: Constipation Last Admin: 01/03/19 21:38 Dose: 20 gm Losartan Potassium (Cozaar) 100 mg PO DAILY [facility] Last Admin: 01/07/19 09:08 Dose: 100 mg Ondansetron HCl (Zofran Inj) 4 mg IVP Q6 PRN PRN Reason: Nausea/Vomiting Last Admin: 01/06/19 11:01 Dose: 4 mg Oxycodone HCl (Oxycodone Immediate Release Tab) 5 mg PO Q4 PRN PRN Reason: Pain, Mild (1-3) Last Admin: 01/05/19 01:38 Dose: 5 mg Oxycodone HCl (Oxycodone Immediate Release Tab) 10 mg PO Q4 PRN PRN Reason: Pain, severe (8-10) Last Admin: 01/07/19 16:32 Dose: 10 mg Pantoprazole Sodium (Protonix Ec Tab) 40 mg PO DAILY [facility] Last Admin: 01/07/19 09:06 Dose: 40 mg Senna/Docusate Sodium (Senokot S 50 Mg-8.6 Mg) 1 tab PO DAILY [facility] Last Admin: 01/07/19 09:11 Dose: 1 tab Senna/Docusate Sodium (Senokot S 50 Mg-8.6 Mg) 2 tab PO HS [facility] Last Admin: 01/06/19 21:16 Dose: 2 tab Simethicone (Mylicon Chew Tab) 80 mg PO Q8 PRN PRN Reason: Flatulence Last Admin: 01/07/19 09:05 Dose: 80 mg Sucralfate (Carafate Oral Susp) 1 gm PO ACHS [facility] Last Admin: 01/07/19 16:32 Dose: 1 gm - Labs Labs: 01/06/19 13:56 01/06/19 13:56 - Constitutional Appears: Well, Non-toxic, No Acute Distress - Head Exam Head Exam: ATRAUMATIC, NORMAL INSPECTION, NORMOCEPHALIC - Eye Exam Eye Exam: EOMI Pupil Exam: NORMAL ACCOMODATION - ENT Exam ENT Exam: Mucous Membranes Moist - Respiratory Exam Respiratory Exam: NORMAL BREATHING PATTERN - Cardiovascular Exam Cardiovascular Exam: REGULAR RHYTHM - GI/Abdominal Exam GI & Abdominal Exam: Distended. absent: Guarding - Neurological Exam Neurological Exam: Alert, Awake, CN II-XII Intact - Psychiatric Exam Psychiatric exam: Normal Affect, Normal Mood - Skin Skin Exam: Warm Assessment and Plan - Assessment and Plan (Free Text) Assessment: Alysha White, born 1945 who has been admitted to [facility] for CAITLYN following an elective right TKR. She has failed conservative and interventional care in the past. Post op pain is fairly well controlled. PT/OT to continue to help increase functional independence Pain: controlled Vascular: no evidence of DVT GI: No evidence of constipation or diarrhea today and doing better Patient continues to be an excellent TCU rehabilitation candidate and will have continued focused PT, OT and recreational therapy to help facilitate a safe and appropriate d/c plan
--- NOTE | 2019-01-07 20:03 | CP.PCM.CON ---
History of Present Illness - History of Present Illness History of Present Illness: 73F w/ PMHx of HTN, hyperlipidemia, presented to [facility] for elective right TKR. General surgery consulted for abdominal pain. Patient was found to have an elevated lipase. She has been complaining of epigastric pain for the past three days. Patient reports having a bout of non bloody emesis yesterday. She reports pain along epigastrium as well as mid lower abdominal region. Patient reports passing flatus but has not had a normal BM. Patient has been given enemas and as per patient she's only had liquid BM with scant formed stool once enema is given. Patient reports feeling better today. She denies headache/dizziness, chest pain, SOB, dysuria, hematochezia. PMHx: as stated above PSurgHx: hysterectomy (1981) Allergies: aspirin, bacitracin, neomycin, polymixin B Meds: as per MAR Review of Systems - Review of Systems All systems: reviewed and no additional remarkable complaints except Review of Systems: as stated in HPI Past Patient History - Past Medical History & Family History Past Medical History?: Yes - Past Social History Smoking Status: Former Smoker Alcohol: None Drugs: Denies Home Situation {Lives}: Alone (entry steps) - CARDIAC Hx Hypercholesterolemia: Yes Hx Hypertension: Yes - PULMONARY Hx Chronic Obstructive Pulmonary Disease (COPD): Yes - NEUROLOGICAL Hx Neurological Disorder: No - HEENT Hx HEENT Problems: Yes Hx Cataracts: Yes (BILAT.) - RENAL Hx Chronic Kidney Disease: No - ENDOCRINE/METABOLIC Hx Endocrine Disorders: No - HEMATOLOGICAL/ONCOLOGICAL Hx Blood Disorders: No - INTEGUMENTARY Hx Dermatological Problems: No - MUSCULOSKELETAL/RHEUMATOLOGICAL Hx Arthritis: Yes (osteoarthritis) - GASTROINTESTINAL Hx Gastrointestinal Disorders: Yes - GENITOURINARY/GYNECOLOGICAL Hx Genitourinary Disorders: Yes Other/Comment: HX: FIBROID UTERUS - PSYCHIATRIC Hx Psychophysiologic Disorder: No Hx Substance Use: No - SURGICAL HISTORY Hx Surgeries: Yes Hx Cataract Extraction: Yes (BILAT.) Hx Hysterectomy: Yes (PARTIAL HYSTERECTOMY) Other/Comment: HX: "INJECTIONS TO RIGHT HIP AND LOWER BACK FOR PAIN" - ANESTHESIA Hx Anesthesia: Yes Hx Anesthesia Reactions: No Hx Malignant Hyperthermia: No Meds Allergies/Adverse Reactions: Allergies Allergy/AdvReac Type Severity Reaction Status Date / Time aspirin Allergy Intermediate NAUSEA Verified 10/06/18 11:35 bacitracin Allergy Intermediate RASH Verified 10/06/18 11:35 [From Neosporin ([id number])] neomycin Allergy Intermediate RASH Verified 10/06/18 11:35 [From Neosporin ([id number])] polymyxin B Allergy Intermediate RASH Verified 10/06/18 11:35 [From Neosporin ([id number])] - Medications Medications: Current Medications Acetaminophen (Tylenol 325mg Tab) 975 mg PO Q8 [facility] Last Admin: 01/07/19 16:35 Dose: Not Given Amlodipine Besylate (Norvasc) 5 mg PO DAILY [facility] Last Admin: 01/07/19 09:06 Dose: 5 mg Ascorbic Acid (Vitamin C 500 Mg Tab) 1,000 mg PO DAILY [facility] Last Admin: 01/07/19 09:05 Dose: 1,000 mg Atorvastatin Calcium (Lipitor) 10 mg PO HS [facility] Last Admin: 01/06/19 21:15 Dose: 10 mg Clonidine HCl (Catapres) 0.1 mg PO BID [facility] Last Admin: 01/07/19 16:35 Dose: 0.1 mg Ezetimibe (Zetia) 10 mg PO DAILY [facility] Last Admin: 01/07/19 09:08 Dose: 10 mg Enoxaparin Sodium (Lovenox) 30 mg SC DAILY [facility]; Protocol Last Admin: 01/07/19 09:04 Dose: 30 mg Ferrous Sulfate (Feosol) 325 mg PO BID [facility] Last Admin: 01/07/19 16:33 Dose: 325 mg Folic Acid (Folic Acid) 1 mg PO DAILY [facility] Last Admin: 01/07/19 09:07 Dose: 1 mg Lactated Ringer's (Lactated Ringer's) 1,000 mls @ 125 mls/hr IV .Q8H [facility] Lactulose (Enulose) 20 gm PO DAILY PRN PRN Reason: Constipation Last Admin: 01/03/19 21:38 Dose: 20 gm Losartan Potassium (Cozaar) 100 mg PO DAILY [facility] Last Admin: 01/07/19 09:08 Dose: 100 mg Ondansetron HCl (Zofran Inj) 4 mg IVP Q6 PRN PRN Reason: Nausea/Vomiting Last Admin: 01/06/19 11:01 Dose: 4 mg Pantoprazole Sodium (Protonix Ec Tab) 40 mg PO DAILY [facility] Last Admin: 01/07/19 09:06 Dose: 40 mg Senna/Docusate Sodium (Senokot S 50 Mg-8.6 Mg) 1 tab PO DAILY [facility] Last Admin: 01/07/19 09:11 Dose: 1 tab Senna/Docusate Sodium (Senokot S 50 Mg-8.6 Mg) 2 tab PO HS [facility] Last Admin: 01/06/19 21:16 Dose: 2 tab Simethicone (Mylicon Chew Tab) 80 mg PO Q8 PRN PRN Reason: Flatulence Last Admin: 01/07/19 09:05 Dose: 80 mg Sucralfate (Carafate Oral Susp) 1 gm PO ACHS [facility] Last Admin: 01/07/19 16:32 Dose: 1 gm Physical Exam - Constitutional Appears: No Acute Distress - Head Exam Head Exam: NORMOCEPHALIC - Eye Exam Eye Exam: Normal appearance - ENT Exam ENT Exam: Mucous Membranes Dry - Respiratory Exam Respiratory Exam: NORMAL BREATHING PATTERN - Cardiovascular Exam Cardiovascular Exam: +S1, +S2 - GI/Abdominal Exam GI & Abdominal Exam: Soft, Tenderness. absent: Distended, Firm, Guarding Additional comments: epigastric tenderness suprapubic tenderness - Neurological Exam Neurological exam: Alert, Oriented x3 - Psychiatric Exam Psychiatric exam: Normal Mood - Skin Skin Exam: Dry, Intact, Warm Results - Vital Signs Recent Vital Signs: Last Vital Signs Temp 98.9 F 01/07/19 17:01 Pulse 67 01/07/19 17:01 Resp 20 01/07/19 17:01 BP 162/67 H 01/07/19 17:01 Pulse Ox 100 01/07/19 17:01 - Labs Result Diagrams: 01/06/19 13:56 01/06/19 13:56 Labs: Laboratory Results - last 24 hr 01/07/19 05:46 Lipase 470 H Assessment & Plan - Assessment and Plan (Free Text) Assessment: 73F with abdominal pain likely 2/2 pancreatitis Plan: -CLD -IVF -CT Abd and Pelvis w/ PO for evaluation of bowel -RUQ U/S, ?gallstone pancreatitis -Encourage ambulation -Hold narcotics -Further recs pending imaging results -Will follow -D/w Dr. Keanu Zamora PGY3
[2019-01-07] MEDS: Lactated Ringer's 1,000 ML IV SCH (23:19)
--- NOTE | 2019-01-07 23:22 | CP.PCM.PN ---
Subjective - Date & Time of Evaluation Date of Evaluation: 01/06/19 Objective - Vital Signs/Intake and Output Vital Signs (last 24 hours): Temp Pulse Resp BP Pulse Ox 99.2 F 75 20 168/67 H 95 01/07/19 21:46 01/07/19 21:46 01/07/19 21:46 01/07/19 21:46 01/07/19 21:46 - Medications Medications: Current Medications Acetaminophen (Tylenol 325mg Tab) 975 mg PO Q8 [facility] Last Admin: 01/07/19 16:35 Dose: Not Given Amlodipine Besylate (Norvasc) 5 mg PO DAILY [facility] Last Admin: 01/07/19 09:06 Dose: 5 mg Ascorbic Acid (Vitamin C 500 Mg Tab) 1,000 mg PO DAILY [facility] Last Admin: 01/07/19 09:05 Dose: 1,000 mg Atorvastatin Calcium (Lipitor) 10 mg PO HS [facility] Last Admin: 01/07/19 22:48 Dose: 10 mg Clonidine HCl (Catapres) 0.1 mg PO BID [facility] Last Admin: 01/07/19 16:35 Dose: 0.1 mg Ezetimibe (Zetia) 10 mg PO DAILY [facility] Last Admin: 01/07/19 09:08 Dose: 10 mg Enoxaparin Sodium (Lovenox) 30 mg SC DAILY [facility]; Protocol Last Admin: 01/07/19 09:04 Dose: 30 mg Ferrous Sulfate (Feosol) 325 mg PO BID [facility] Last Admin: 01/07/19 16:33 Dose: 325 mg Folic Acid (Folic Acid) 1 mg PO DAILY [facility] Last Admin: 01/07/19 09:07 Dose: 1 mg Lactated Ringer's (Lactated Ringer's) 1,000 mls @ 125 mls/hr IV .Q8H [facility] Ketorolac Tromethamine (Toradol) 15 mg IVP Q6 PRN PRN Reason: Pain, moderate (4-7) Lactulose (Enulose) 20 gm PO DAILY PRN PRN Reason: Constipation Last Admin: 01/03/19 21:38 Dose: 20 gm Losartan Potassium (Cozaar) 100 mg PO DAILY [facility] Last Admin: 01/07/19 09:08 Dose: 100 mg Ondansetron HCl (Zofran Inj) 4 mg IVP Q6 PRN PRN Reason: Nausea/Vomiting Last Admin: 01/06/19 11:01 Dose: 4 mg Oxycodone/Acetaminophen (Percocet 5/325 Mg Tab) 1 tab PO Q6 PRN PRN Reason: Pain, severe (8-10) Stop: 01/10/19 20:25 Pantoprazole Sodium (Protonix Ec Tab) 40 mg PO DAILY [facility] Last Admin: 01/07/19 09:06 Dose: 40 mg Senna/Docusate Sodium (Senokot S 50 Mg-8.6 Mg) 1 tab PO DAILY [facility] Last Admin: 01/07/19 09:11 Dose: 1 tab Senna/Docusate Sodium (Senokot S 50 Mg-8.6 Mg) 2 tab PO HS [facility] Last Admin: 01/06/19 21:16 Dose: 2 tab Simethicone (Mylicon Chew Tab) 80 mg PO Q8 PRN PRN Reason: Flatulence Last Admin: 01/07/19 09:05 Dose: 80 mg Sucralfate (Carafate Oral Susp) 1 gm PO ACHS [facility] Last Admin: 01/07/19 22:47 Dose: 1 gm - Labs Labs: 01/06/19 13:56 01/06/19 13:56
--- NOTE | 2019-01-07 23:23 | CP.PCM.PN ---
Subjective - Date & Time of Evaluation Date of Evaluation: 01/07/19 Objective - Vital Signs/Intake and Output Vital Signs (last 24 hours): Temp Pulse Resp BP Pulse Ox 99.2 F 75 20 168/67 H 95 01/07/19 21:46 01/07/19 21:46 01/07/19 21:46 01/07/19 21:46 01/07/19 21:46 - Medications Medications: Current Medications Acetaminophen (Tylenol 325mg Tab) 975 mg PO Q8 [facility] Last Admin: 01/07/19 16:35 Dose: Not Given Amlodipine Besylate (Norvasc) 5 mg PO DAILY [facility] Last Admin: 01/07/19 09:06 Dose: 5 mg Ascorbic Acid (Vitamin C 500 Mg Tab) 1,000 mg PO DAILY [facility] Last Admin: 01/07/19 09:05 Dose: 1,000 mg Atorvastatin Calcium (Lipitor) 10 mg PO HS [facility] Last Admin: 01/07/19 22:48 Dose: 10 mg Clonidine HCl (Catapres) 0.1 mg PO BID [facility] Last Admin: 01/07/19 16:35 Dose: 0.1 mg Ezetimibe (Zetia) 10 mg PO DAILY [facility] Last Admin: 01/07/19 09:08 Dose: 10 mg Enoxaparin Sodium (Lovenox) 30 mg SC DAILY [facility]; Protocol Last Admin: 01/07/19 09:04 Dose: 30 mg Ferrous Sulfate (Feosol) 325 mg PO BID [facility] Last Admin: 01/07/19 16:33 Dose: 325 mg Folic Acid (Folic Acid) 1 mg PO DAILY [facility] Last Admin: 01/07/19 09:07 Dose: 1 mg Lactated Ringer's (Lactated Ringer's) 1,000 mls @ 125 mls/hr IV .Q8H [facility] Ketorolac Tromethamine (Toradol) 15 mg IVP Q6 PRN PRN Reason: Pain, moderate (4-7) Lactulose (Enulose) 20 gm PO DAILY PRN PRN Reason: Constipation Last Admin: 01/03/19 21:38 Dose: 20 gm Losartan Potassium (Cozaar) 100 mg PO DAILY [facility] Last Admin: 01/07/19 09:08 Dose: 100 mg Ondansetron HCl (Zofran Inj) 4 mg IVP Q6 PRN PRN Reason: Nausea/Vomiting Last Admin: 01/06/19 11:01 Dose: 4 mg Oxycodone/Acetaminophen (Percocet 5/325 Mg Tab) 1 tab PO Q6 PRN PRN Reason: Pain, severe (8-10) Stop: 01/10/19 20:25 Pantoprazole Sodium (Protonix Ec Tab) 40 mg PO DAILY [facility] Last Admin: 01/07/19 09:06 Dose: 40 mg Senna/Docusate Sodium (Senokot S 50 Mg-8.6 Mg) 1 tab PO DAILY [facility] Last Admin: 01/07/19 09:11 Dose: 1 tab Senna/Docusate Sodium (Senokot S 50 Mg-8.6 Mg) 2 tab PO HS [facility] Last Admin: 01/06/19 21:16 Dose: 2 tab Simethicone (Mylicon Chew Tab) 80 mg PO Q8 PRN PRN Reason: Flatulence Last Admin: 01/07/19 09:05 Dose: 80 mg Sucralfate (Carafate Oral Susp) 1 gm PO ACHS [facility] Last Admin: 01/07/19 22:47 Dose: 1 gm - Labs Labs: 01/06/19 13:56 01/06/19 13:56
[2019-01-08] MEDS: Lactated Ringer's 1,000 ML IV SCH ×3 (04:45→20:51)
[2019-01-08] MEDS: Oxycodone/Acetaminophen 5/325 mg Tab PO PRN (06:01)
--- NOTE | 2019-01-08 09:04 | CP.PCM.PN ---
Subjective - Date & Time of Evaluation Date of Evaluation: 01/08/19 Time of Evaluation: 09:00 - Subjective Subjective: General Surgery note for Dr. Colunga, 73 y/o female patient seen and evaluated at bedside. Patient still complaining of diffuse abdominal pain. Patient denies BMs or flatus. Patient denies any overnight nausea or vomiting. Objective - Vital Signs/Intake and Output Vital Signs (last 24 hours): Temp Pulse Resp BP Pulse Ox 98.3 F 74 20 176/69 H 96 01/08/19 07:55 01/08/19 07:55 01/08/19 07:55 01/08/19 07:55 01/08/19 07:55 - Medications Medications: Current Medications Acetaminophen (Tylenol 325mg Tab) 975 mg PO Q8 [facility] Last Admin: 01/08/19 03:54 Dose: Not Given Amlodipine Besylate (Norvasc) 5 mg PO DAILY [facility] Last Admin: 01/07/19 09:06 Dose: 5 mg Ascorbic Acid (Vitamin C 500 Mg Tab) 1,000 mg PO DAILY [facility] Last Admin: 01/07/19 09:05 Dose: 1,000 mg Atorvastatin Calcium (Lipitor) 10 mg PO HS [facility] Last Admin: 01/07/19 22:48 Dose: 10 mg Clonidine HCl (Catapres) 0.1 mg PO BID [facility] Last Admin: 01/07/19 16:35 Dose: 0.1 mg Ezetimibe (Zetia) 10 mg PO DAILY [facility] Last Admin: 01/07/19 09:08 Dose: 10 mg Enoxaparin Sodium (Lovenox) 30 mg SC DAILY [facility]; Protocol Last Admin: 01/07/19 09:04 Dose: 30 mg Ferrous Sulfate (Feosol) 325 mg PO BID [facility] Last Admin: 01/07/19 16:33 Dose: 325 mg Folic Acid (Folic Acid) 1 mg PO DAILY [facility] Last Admin: 01/07/19 09:07 Dose: 1 mg Lactated Ringer's (Lactated Ringer's) 1,000 mls @ 125 mls/hr IV .Q8H [facility] Last Admin: 01/08/19 04:45 Dose: 125 mls/hr Ketorolac Tromethamine (Toradol) 15 mg IVP Q6 PRN PRN Reason: Pain, moderate (4-7) Last Admin: 01/08/19 04:46 Dose: 15 mg Lactulose (Enulose) 20 gm PO DAILY PRN PRN Reason: Constipation Last Admin: 01/03/19 21:38 Dose: 20 gm Losartan Potassium (Cozaar) 100 mg PO DAILY [facility] Last Admin: 01/07/19 09:08 Dose: 100 mg Ondansetron HCl (Zofran Inj) 4 mg IVP Q6 PRN PRN Reason: Nausea/Vomiting Last Admin: 01/06/19 11:01 Dose: 4 mg Oxycodone/Acetaminophen (Percocet 5/325 Mg Tab) 1 tab PO Q6 PRN PRN Reason: Pain, severe (8-10) Stop: 01/10/19 20:25 Last Admin: 01/08/19 06:01 Dose: 1 tab Pantoprazole Sodium (Protonix Ec Tab) 40 mg PO DAILY [facility] Last Admin: 01/07/19 09:06 Dose: 40 mg Senna/Docusate Sodium (Senokot S 50 Mg-8.6 Mg) 1 tab PO DAILY [facility] Last Admin: 01/07/19 09:11 Dose: 1 tab Senna/Docusate Sodium (Senokot S 50 Mg-8.6 Mg) 2 tab PO HS [facility] Last Admin: 01/07/19 23:37 Dose: 2 tab Simethicone (Mylicon Chew Tab) 80 mg PO Q8 PRN PRN Reason: Flatulence Last Admin: 01/07/19 09:05 Dose: 80 mg Sucralfate (Carafate Oral Susp) 1 gm PO ACHS [facility] Last Admin: 01/07/19 22:47 Dose: 1 gm - Labs Labs: 01/06/19 13:56 01/06/19 13:56 - Constitutional Appears: No Acute Distress - Head Exam Head Exam: ATRAUMATIC, NORMOCEPHALIC - Eye Exam Eye Exam: Normal appearance - ENT Exam ENT Exam: Mucous Membranes Dry - Respiratory Exam Respiratory Exam: Clear to Ausculation Bilateral. absent: Accessory Muscle Use, Respiratory Distress - Cardiovascular Exam Cardiovascular Exam: +S1, +S2 - GI/Abdominal Exam GI & Abdominal Exam: Tenderness. absent: Distended, Guarding Additional comments: tenderness on palpation to epigastric and suprapubic regions - Neurological Exam Neurological Exam: Alert, Awake, Oriented x3 - Psychiatric Exam Psychiatric exam: Normal Affect - Skin Skin Exam: Dry, Warm Assessment and Plan - Assessment and Plan (Free Text) Assessment: 73 y/o female patient with abdominal pain Plan: CLD Continue IV Fluids F/U CT Abdomen Pelvis F/U Abdominal US Encourage ambulation further recs per Dr. Keanu Gautam, PGY1
[2019-01-08] MEDS: Enoxaparin 30 mg Syringe SC SCH (09:18)
[2019-01-08] MEDS ORDERED: Iohexol 240 (50 ml) PO ONE (09:18)
[2019-01-08] MEDS: Pantoprazole 40 mg EC Tab PO SCH (09:19)
[2019-01-08] MEDS: Docusate-Senna 50 mg-8.6 mg Tab PO SCH ×2 (09:20→21:02)
[2019-01-08] MEDS: Sucralfate 1 gm/10 ml Oral Susp UD PO SCH ×4 (09:20→21:01)
--- NOTE | 2019-01-08 12:09 | CP.PCM.PN ---
Subjective - Date & Time of Evaluation Date of Evaluation: 01/08/19 Time of Evaluation: 10:00 - Subjective Subjective: Patient still having knee pain, but cc is abdominal pain. General surgery on case, awaiting CT abd. John PT well. No new complaints. Objective - Vital Signs/Intake and Output Vital Signs (last 24 hours): Temp Pulse Resp BP Pulse Ox 98.3 F 74 20 176/69 H 96 01/08/19 07:55 01/08/19 11:33 01/08/19 07:55 01/08/19 11:33 01/08/19 07:55 - Medications Medications: Current Medications Acetaminophen (Tylenol 325mg Tab) 975 mg PO Q8 [facility] Last Admin: 01/08/19 09:22 Dose: 975 mg Amlodipine Besylate (Norvasc) 5 mg PO DAILY [facility] Last Admin: 01/08/19 09:19 Dose: 5 mg Ascorbic Acid (Vitamin C 500 Mg Tab) 1,000 mg PO DAILY [facility] Last Admin: 01/08/19 09:18 Dose: 1,000 mg Atorvastatin Calcium (Lipitor) 10 mg PO HS [facility] Last Admin: 01/07/19 22:48 Dose: 10 mg Clonidine HCl (Catapres) 0.1 mg PO BID [facility] Last Admin: 01/08/19 09:19 Dose: 0.1 mg Ezetimibe (Zetia) 10 mg PO DAILY [facility] Last Admin: 01/08/19 09:18 Dose: 10 mg Enoxaparin Sodium (Lovenox) 30 mg SC DAILY [facility]; Protocol Last Admin: 01/08/19 09:18 Dose: 30 mg Ferrous Sulfate (Feosol) 325 mg PO BID [facility] Last Admin: 01/08/19 11:37 Dose: 325 mg Folic Acid (Folic Acid) 1 mg PO DAILY [facility] Last Admin: 01/08/19 11:34 Dose: 1 mg Lactated Ringer's (Lactated Ringer's) 1,000 mls @ 125 mls/hr IV .Q8H [facility] Last Admin: 01/08/19 04:45 Dose: 125 mls/hr Ketorolac Tromethamine (Toradol) 15 mg IVP Q6 PRN PRN Reason: Pain, moderate (4-7) Last Admin: 01/08/19 04:46 Dose: 15 mg Lactulose (Enulose) 20 gm PO DAILY PRN PRN Reason: Constipation Last Admin: 01/03/19 21:38 Dose: 20 gm Losartan Potassium (Cozaar) 100 mg PO DAILY [facility] Last Admin: 01/08/19 11:33 Dose: 100 mg Ondansetron HCl (Zofran Inj) 4 mg IVP Q6 PRN PRN Reason: Nausea/Vomiting Last Admin: 01/06/19 11:01 Dose: 4 mg Oxycodone/Acetaminophen (Percocet 5/325 Mg Tab) 1 tab PO Q6 PRN PRN Reason: Pain, severe (8-10) Stop: 01/10/19 20:25 Last Admin: 01/08/19 06:01 Dose: 1 tab Pantoprazole Sodium (Protonix Ec Tab) 40 mg PO DAILY [facility] Last Admin: 01/08/19 09:19 Dose: 40 mg Senna/Docusate Sodium (Senokot S 50 Mg-8.6 Mg) 1 tab PO DAILY [facility] Last Admin: 01/08/19 09:20 Dose: 1 tab Senna/Docusate Sodium (Senokot S 50 Mg-8.6 Mg) 2 tab PO HS [facility] Last Admin: 01/07/19 23:37 Dose: 2 tab Simethicone (Mylicon Chew Tab) 80 mg PO Q8 PRN PRN Reason: Flatulence Last Admin: 01/07/19 09:05 Dose: 80 mg Sucralfate (Carafate Oral Susp) 1 gm PO ACHS [facility] Last Admin: 01/08/19 11:35 Dose: 1 gm - Labs Labs: 01/06/19 13:56 01/06/19 13:56 - Extremities Exam Additional comments: Right knee: incision intact, dry, no erythema, mild expected knee swelling, +Álvarez ankle/toes, sensation intact +DP/PT pulses, calves sfot NT neg homans Assessment and Plan (1) Osteoarthritis of right knee Assessment & Plan: s/p TKR progressing well f/u gen surg for abd pain d/w Dr. Hinkle, agrees with above Status: Acute (2) Acute blood loss anemia Status: Acute
--- NOTE | 2019-01-08 16:22 | CP.PCM.PN ---
Objective - Vital Signs/Intake and Output Vital Signs (last 24 hours): Temp Pulse Resp BP Pulse Ox 98.3 F 74 20 176/69 H 96 01/08/19 07:55 01/08/19 11:33 01/08/19 07:55 01/08/19 11:33 01/08/19 07:55 - Medications Medications: Current Medications Acetaminophen (Tylenol 325mg Tab) 975 mg PO Q8 [facility] Last Admin: 01/08/19 09:22 Dose: 975 mg Amlodipine Besylate (Norvasc) 5 mg PO DAILY [facility] Last Admin: 01/08/19 09:19 Dose: 5 mg Ascorbic Acid (Vitamin C 500 Mg Tab) 1,000 mg PO DAILY [facility] Last Admin: 01/08/19 09:18 Dose: 1,000 mg Atorvastatin Calcium (Lipitor) 10 mg PO HS [facility] Last Admin: 01/07/19 22:48 Dose: 10 mg Clonidine HCl (Catapres) 0.1 mg PO BID [facility] Last Admin: 01/08/19 09:19 Dose: 0.1 mg Ezetimibe (Zetia) 10 mg PO DAILY [facility] Last Admin: 01/08/19 09:18 Dose: 10 mg Enoxaparin Sodium (Lovenox) 30 mg SC DAILY [facility]; Protocol Last Admin: 01/08/19 09:18 Dose: 30 mg Ferrous Sulfate (Feosol) 325 mg PO BID [facility] Last Admin: 01/08/19 11:37 Dose: 325 mg Folic Acid (Folic Acid) 1 mg PO DAILY [facility] Last Admin: 01/08/19 11:34 Dose: 1 mg Lactated Ringer's (Lactated Ringer's) 1,000 mls @ 125 mls/hr IV .Q8H [facility] Last Admin: 01/08/19 14:28 Dose: Not Given Ketorolac Tromethamine (Toradol) 15 mg IVP Q6 PRN PRN Reason: Pain, moderate (4-7) Last Admin: 01/08/19 04:46 Dose: 15 mg Lactulose (Enulose) 20 gm PO DAILY PRN PRN Reason: Constipation Last Admin: 01/03/19 21:38 Dose: 20 gm Losartan Potassium (Cozaar) 100 mg PO DAILY [facility] Last Admin: 01/08/19 11:33 Dose: 100 mg Ondansetron HCl (Zofran Inj) 4 mg IVP Q6 PRN PRN Reason: Nausea/Vomiting Last Admin: 01/08/19 12:51 Dose: 4 mg Oxycodone/Acetaminophen (Percocet 5/325 Mg Tab) 1 tab PO Q6 PRN PRN Reason: Pain, severe (8-10) Stop: 01/10/19 20:25 Last Admin: 01/08/19 06:01 Dose: 1 tab Pantoprazole Sodium (Protonix Ec Tab) 40 mg PO DAILY [facility] Last Admin: 01/08/19 09:19 Dose: 40 mg Senna/Docusate Sodium (Senokot S 50 Mg-8.6 Mg) 1 tab PO DAILY [facility] Last Admin: 01/08/19 09:20 Dose: 1 tab Senna/Docusate Sodium (Senokot S 50 Mg-8.6 Mg) 2 tab PO HS [facility] Last Admin: 01/07/19 23:37 Dose: 2 tab Simethicone (Mylicon Chew Tab) 80 mg PO Q8 PRN PRN Reason: Flatulence Last Admin: 01/07/19 09:05 Dose: 80 mg Sucralfate (Carafate Oral Susp) 1 gm PO ACHS [facility] Last Admin: 01/08/19 11:35 Dose: 1 gm - Labs Labs: 01/06/19 13:56 01/06/19 13:56
[2019-01-08 20:54] LABS: SQUAMOUS EPITHIAL 6 /hpf (0-5); URINE BILIRUBIN NEGATIVE (NEGATIVE); URINE BLOOD NEGATIVE (NEGATIVE); URINE CLARITY SLIGHTY-CLOUDY (Clear); URINE COLOR YELLOW (YELLOW); URINE GLUCOSE (UA) NEG (NEGATIVE); URINE LEUKOCYTE ESTERASE NEG Leu/uL (Negative); URINE PROTEIN NEGATIVE (NEGATIVE); URINE UROBILINOGEN 0.2-1.0 mg/dL (0.2-1.0)
[2019-01-09] MEDS: Lactated Ringer's 1,000 ML IV SCH ×3 (05:42→22:27)
--- NOTE | 2019-01-09 06:17 | CP.PCM.PN ---
Subjective - Date & Time of Evaluation Date of Evaluation: 01/09/19 Time of Evaluation: 06:14 - Subjective Subjective: General Surgery Progress Note for Dr. Colunga This 73F was seen and examined this AM t bedside no acute events reported overnight. She was out of bed walking when I saw her she reports she feels significantly better she was able to move her bowels and tolerates clears. She denies ay fevers chills chest pain or SOB. Objective - Vital Signs/Intake and Output Vital Signs (last 24 hours): Temp Pulse Resp BP Pulse Ox 98.8 F 64 20 128/62 97 01/08/19 22:11 01/08/19 22:11 01/08/19 22:11 01/08/19 22:11 01/08/19 22:11 - Medications Medications: Current Medications Acetaminophen (Tylenol 325mg Tab) 975 mg PO Q8 [facility] Last Admin: 01/09/19 00:36 Dose: 975 mg Amlodipine Besylate (Norvasc) 5 mg PO DAILY [facility] Last Admin: 01/08/19 09:19 Dose: 5 mg Ascorbic Acid (Vitamin C 500 Mg Tab) 1,000 mg PO DAILY [facility] Last Admin: 01/08/19 09:18 Dose: 1,000 mg Atorvastatin Calcium (Lipitor) 10 mg PO HS [facility] Last Admin: 01/08/19 21:02 Dose: 10 mg Clonidine HCl (Catapres) 0.1 mg PO BID [facility] Last Admin: 01/08/19 17:29 Dose: 0.1 mg Ezetimibe (Zetia) 10 mg PO DAILY [facility] Last Admin: 01/08/19 09:18 Dose: 10 mg Ferrous Sulfate (Feosol) 325 mg PO BID [facility] Last Admin: 01/08/19 17:28 Dose: 325 mg Folic Acid (Folic Acid) 1 mg PO DAILY [facility] Last Admin: 01/08/19 11:34 Dose: 1 mg Lactated Ringer's (Lactated Ringer's) 1,000 mls @ 125 mls/hr IV .Q8H [facility] Last Admin: 01/09/19 05:42 Dose: 125 mls/hr Ketorolac Tromethamine (Toradol) 15 mg IVP Q6 PRN PRN Reason: Pain, moderate (4-7) Last Admin: 01/08/19 04:46 Dose: 15 mg Lactulose (Enulose) 20 gm PO DAILY PRN PRN Reason: Constipation Last Admin: 01/03/19 21:38 Dose: 20 gm Losartan Potassium (Cozaar) 100 mg PO DAILY [facility] Last Admin: 01/08/19 11:33 Dose: 100 mg Ondansetron HCl (Zofran Inj) 4 mg IVP Q6 PRN PRN Reason: Nausea/Vomiting Last Admin: 01/08/19 12:51 Dose: 4 mg Oxycodone/Acetaminophen (Percocet 5/325 Mg Tab) 1 tab PO Q6 PRN PRN Reason: Pain, severe (8-10) Stop: 01/10/19 20:25 Last Admin: 01/08/19 06:01 Dose: 1 tab Pantoprazole Sodium (Protonix Ec Tab) 40 mg PO DAILY [facility] Last Admin: 01/08/19 09:19 Dose: 40 mg Senna/Docusate Sodium (Senokot S 50 Mg-8.6 Mg) 1 tab PO DAILY [facility] Last Admin: 01/08/19 09:20 Dose: 1 tab Senna/Docusate Sodium (Senokot S 50 Mg-8.6 Mg) 2 tab PO HS [facility] Last Admin: 01/08/19 21:02 Dose: 2 tab Simethicone (Mylicon Chew Tab) 80 mg PO Q8 PRN PRN Reason: Flatulence Last Admin: 01/07/19 09:05 Dose: 80 mg Sucralfate (Carafate Oral Susp) 1 gm PO ACHS [facility] Last Admin: 01/08/19 21:01 Dose: 1 gm - Labs Labs: 01/06/19 13:56 01/06/19 13:56 - Constitutional Appears: Non-toxic, No Acute Distress - Head Exam Head Exam: ATRAUMATIC, NORMOCEPHALIC - Eye Exam Eye Exam: EOMI - ENT Exam ENT Exam: Mucous Membranes Moist - Respiratory Exam Respiratory Exam: NORMAL BREATHING PATTERN - Cardiovascular Exam Cardiovascular Exam: +S1, +S2 - GI/Abdominal Exam GI & Abdominal Exam: Soft, Tenderness. absent: Distended, Firm, Guarding, Rigid - Neurological Exam Neurological Exam: Alert, Awake - Psychiatric Exam Psychiatric exam: Normal Affect, Normal Mood - Skin Skin Exam: Dry, Intact Assessment and Plan - Assessment and Plan (Free Text) Assessment: 73F with pancreatitis that is resolving Tolerating clears advance diet as tolerated per primary team UA negative for UTI US shows no signs of GB disease No acute surgical intervention warranted at this time. Further recs per Dr. Keanu Johnson PGY3
[2019-01-09] MEDS: Sucralfate 1 gm/10 ml Oral Susp UD PO SCH ×4 (06:48→22:29)
[2019-01-09] MEDS: Pantoprazole 40 mg EC Tab PO SCH (10:03)
[2019-01-09] MEDS: Docusate-Senna 50 mg-8.6 mg Tab PO SCH ×2 (10:07→22:30)
[2019-01-09] MEDS: Oxycodone/Acetaminophen 5/325 mg Tab PO PRN (15:44)
[2019-01-10] MEDS: Oxycodone/Acetaminophen 5/325 mg Tab PO PRN ×3 (00:03→17:02)
[2019-01-10] MEDS: Lactated Ringer's 1,000 ML IV SCH ×3 (03:27→21:27)
--- NOTE | 2019-01-10 04:30 | CP.PCM.PN ---
Subjective - Date & Time of Evaluation Date of Evaluation: 01/09/19 Objective - Vital Signs/Intake and Output Vital Signs (last 24 hours): Temp Pulse Resp BP Pulse Ox 98.2 F 63 20 145/64 98 01/09/19 21:55 01/09/19 21:55 01/09/19 21:55 01/09/19 21:55 01/09/19 21:55 - Medications Medications: Current Medications Acetaminophen (Tylenol 325mg Tab) 975 mg PO Q8 [facility] Last Admin: 01/10/19 01:56 Dose: Not Given Amlodipine Besylate (Norvasc) 5 mg PO DAILY [facility] Last Admin: 01/09/19 10:05 Dose: 5 mg Ascorbic Acid (Vitamin C 500 Mg Tab) 1,000 mg PO DAILY [facility] Last Admin: 01/09/19 10:05 Dose: 1,000 mg Atorvastatin Calcium (Lipitor) 10 mg PO HS [facility] Last Admin: 01/09/19 22:30 Dose: 10 mg Clonidine HCl (Catapres) 0.1 mg PO BID [facility] Last Admin: 01/09/19 17:11 Dose: 0.1 mg Ezetimibe (Zetia) 10 mg PO DAILY [facility] Last Admin: 01/09/19 10:04 Dose: 10 mg Ferrous Sulfate (Feosol) 325 mg PO BID [facility] Last Admin: 01/09/19 17:18 Dose: 325 mg Folic Acid (Folic Acid) 1 mg PO DAILY [facility] Last Admin: 01/09/19 10:06 Dose: 1 mg Lactated Ringer's (Lactated Ringer's) 1,000 mls @ 125 mls/hr IV .Q8H [facility] Last Admin: 01/10/19 03:27 Dose: Not Given Ketorolac Tromethamine (Toradol) 15 mg IVP Q6 PRN PRN Reason: Pain, moderate (4-7) Last Admin: 01/09/19 10:10 Dose: 15 mg Lactulose (Enulose) 20 gm PO DAILY PRN PRN Reason: Constipation Last Admin: 01/10/19 03:56 Dose: 20 gm Losartan Potassium (Cozaar) 100 mg PO DAILY [facility] Last Admin: 01/09/19 10:04 Dose: 100 mg Ondansetron HCl (Zofran Inj) 4 mg IVP Q6 PRN PRN Reason: Nausea/Vomiting Last Admin: 01/08/19 12:51 Dose: 4 mg Oxycodone/Acetaminophen (Percocet 5/325 Mg Tab) 1 tab PO Q6 PRN PRN Reason: Pain, severe (8-10) Stop: 01/10/19 20:25 Last Admin: 01/10/19 00:03 Dose: 1 tab Pantoprazole Sodium (Protonix Ec Tab) 40 mg PO DAILY [facility] Last Admin: 01/09/19 10:03 Dose: 40 mg Senna/Docusate Sodium (Senokot S 50 Mg-8.6 Mg) 1 tab PO DAILY [facility] Last Admin: 01/09/19 10:07 Dose: 1 tab Senna/Docusate Sodium (Senokot S 50 Mg-8.6 Mg) 2 tab PO HS [facility] Last Admin: 01/09/19 22:30 Dose: 2 tab Simethicone (Mylicon Chew Tab) 80 mg PO Q8 PRN PRN Reason: Flatulence Last Admin: 01/07/19 09:05 Dose: 80 mg Sucralfate (Carafate Oral Susp) 1 gm PO ACHS [facility] Last Admin: 01/09/19 22:29 Dose: 1 gm - Labs Labs: 01/06/19 13:56 01/06/19 13:56
[2019-01-10] MEDS: Sucralfate 1 gm/10 ml Oral Susp UD PO SCH ×4 (08:25→21:26)
[2019-01-10] MEDS: Pantoprazole 40 mg EC Tab PO SCH (08:30)
--- NOTE | 2019-01-10 09:45 | CP.PCM.PN ---
Subjective - Date & Time of Evaluation Date of Evaluation: 01/10/19 Time of Evaluation: 09:43 - Subjective Subjective: Alysha White s/p elective right TKR course complicated with pancreatitis which is resolving. Tolerating clears advance diet as tolerated per primary team UA negative for UTI US shows no signs of GB disease No acute surgical intervention warranted at this time. Objective - Vital Signs/Intake and Output Vital Signs (last 24 hours): Temp Pulse Resp BP Pulse Ox 98.6 F 69 20 107/72 97 01/10/19 08:47 01/10/19 08:47 01/10/19 08:47 01/10/19 08:47 01/10/19 08:47 - Medications Medications: Current Medications Acetaminophen (Tylenol 325mg Tab) 975 mg PO Q8 [facility] Last Admin: 01/10/19 08:24 Dose: 975 mg Amlodipine Besylate (Norvasc) 5 mg PO DAILY [facility] Last Admin: 01/10/19 08:30 Dose: 5 mg Ascorbic Acid (Vitamin C 500 Mg Tab) 1,000 mg PO DAILY [facility] Last Admin: 01/10/19 08:29 Dose: 1,000 mg Atorvastatin Calcium (Lipitor) 10 mg PO HS [facility] Last Admin: 01/09/19 22:30 Dose: 10 mg Clonidine HCl (Catapres) 0.1 mg PO BID [facility] Last Admin: 01/10/19 08:26 Dose: 0.1 mg Ezetimibe (Zetia) 10 mg PO DAILY [facility] Last Admin: 01/10/19 08:30 Dose: 10 mg Ferrous Sulfate (Feosol) 325 mg PO BID [facility] Last Admin: 01/10/19 08:26 Dose: 325 mg Folic Acid (Folic Acid) 1 mg PO DAILY [facility] Last Admin: 01/10/19 08:31 Dose: 1 mg Lactated Ringer's (Lactated Ringer's) 1,000 mls @ 125 mls/hr IV .Q8H [facility] Last Admin: 01/10/19 03:27 Dose: Not Given Ketorolac Tromethamine (Toradol) 15 mg IVP Q6 PRN PRN Reason: Pain, moderate (4-7) Last Admin: 01/09/19 10:10 Dose: 15 mg Lactulose (Enulose) 20 gm PO DAILY PRN PRN Reason: Constipation Last Admin: 01/10/19 03:56 Dose: 20 gm Losartan Potassium (Cozaar) 100 mg PO DAILY [facility] Last Admin: 01/10/19 08:31 Dose: 100 mg Ondansetron HCl (Zofran Inj) 4 mg IVP Q6 PRN PRN Reason: Nausea/Vomiting Last Admin: 01/08/19 12:51 Dose: 4 mg Oxycodone/Acetaminophen (Percocet 5/325 Mg Tab) 1 tab PO Q6 PRN PRN Reason: Pain, severe (8-10) Stop: 01/10/19 20:25 Last Admin: 01/10/19 00:03 Dose: 1 tab Pantoprazole Sodium (Protonix Ec Tab) 40 mg PO DAILY [facility] Last Admin: 01/10/19 08:30 Dose: 40 mg Senna/Docusate Sodium (Senokot S 50 Mg-8.6 Mg) 1 tab PO DAILY [facility] Last Admin: 01/09/19 10:07 Dose: 1 tab Senna/Docusate Sodium (Senokot S 50 Mg-8.6 Mg) 2 tab PO HS [facility] Last Admin: 01/09/19 22:30 Dose: 2 tab Simethicone (Mylicon Chew Tab) 80 mg PO Q8 PRN PRN Reason: Flatulence Last Admin: 01/07/19 09:05 Dose: 80 mg Sucralfate (Carafate Oral Susp) 1 gm PO ACHS [facility] Last Admin: 01/10/19 08:25 Dose: 1 gm - Labs Labs: 01/06/19 13:56 01/06/19 13:56 - Constitutional Appears: Non-toxic, In Acute Distress - Head Exam Head Exam: ATRAUMATIC, NORMAL INSPECTION, NORMOCEPHALIC - Eye Exam Eye Exam: EOMI - ENT Exam ENT Exam: Mucous Membranes Moist - Respiratory Exam Respiratory Exam: NORMAL BREATHING PATTERN - Cardiovascular Exam Cardiovascular Exam: REGULAR RHYTHM - GI/Abdominal Exam GI & Abdominal Exam: absent: Guarding - Neurological Exam Neurological Exam: Alert, CN II-XII Intact, Oriented x3 - Psychiatric Exam Psychiatric exam: Normal Affect - Skin Skin Exam: Warm Assessment and Plan - Assessment and Plan (Free Text) Assessment: PT/OT to continue to help increase functional independence Pain: present but improving pancreatitis and knee pain Vascular: no evidence of DVT GI: No evidence of constipation or diarrhea Patient continues to be an excellent TCU rehabilitation candidate and will have continued focused PT, OT and recreational therapy to help facilitate a safe and appropriate d/c plan
[2019-01-10] MEDS: Docusate-Senna 50 mg-8.6 mg Tab PO SCH ×2 (11:40→21:30)
--- NOTE | 2019-01-10 14:32 | CP.PCM.PN ---
Subjective - Date & Time of Evaluation Date of Evaluation: 01/10/19 Objective - Vital Signs/Intake and Output Vital Signs (last 24 hours): Temp Pulse Resp BP Pulse Ox 98.6 F 69 20 107/72 97 01/10/19 09:00 01/10/19 09:00 01/10/19 09:00 01/10/19 09:00 01/10/19 09:00 - Medications Medications: Current Medications Acetaminophen (Tylenol 325mg Tab) 975 mg PO Q8 [facility] Last Admin: 01/10/19 08:24 Dose: 975 mg Amlodipine Besylate (Norvasc) 5 mg PO DAILY [facility] Last Admin: 01/10/19 08:30 Dose: 5 mg Ascorbic Acid (Vitamin C 500 Mg Tab) 1,000 mg PO DAILY [facility] Last Admin: 01/10/19 08:29 Dose: 1,000 mg Atorvastatin Calcium (Lipitor) 10 mg PO HS [facility] Last Admin: 01/09/19 22:30 Dose: 10 mg Clonidine HCl (Catapres) 0.1 mg PO BID [facility] Last Admin: 01/10/19 08:26 Dose: 0.1 mg Ezetimibe (Zetia) 10 mg PO DAILY [facility] Last Admin: 01/10/19 08:30 Dose: 10 mg Ferrous Sulfate (Feosol) 325 mg PO BID [facility] Last Admin: 01/10/19 08:26 Dose: 325 mg Folic Acid (Folic Acid) 1 mg PO DAILY [facility] Last Admin: 01/10/19 08:31 Dose: 1 mg Lactated Ringer's (Lactated Ringer's) 1,000 mls @ 125 mls/hr IV .Q8H [facility] Last Admin: 01/10/19 13:14 Dose: Not Given Ketorolac Tromethamine (Toradol) 15 mg IVP Q6 PRN PRN Reason: Pain, moderate (4-7) Last Admin: 01/09/19 10:10 Dose: 15 mg Lactulose (Enulose) 20 gm PO DAILY PRN PRN Reason: Constipation Last Admin: 01/10/19 03:56 Dose: 20 gm Losartan Potassium (Cozaar) 100 mg PO DAILY [facility] Last Admin: 01/10/19 08:31 Dose: 100 mg Ondansetron HCl (Zofran Inj) 4 mg IVP Q6 PRN PRN Reason: Nausea/Vomiting Last Admin: 01/08/19 12:51 Dose: 4 mg Oxycodone/Acetaminophen (Percocet 5/325 Mg Tab) 1 tab PO Q6 PRN PRN Reason: Pain, severe (8-10) Stop: 01/10/19 20:25 Last Admin: 01/10/19 11:38 Dose: 1 tab Pantoprazole Sodium (Protonix Ec Tab) 40 mg PO DAILY [facility] Last Admin: 01/10/19 08:30 Dose: 40 mg Senna/Docusate Sodium (Senokot S 50 Mg-8.6 Mg) 1 tab PO DAILY [facility] Last Admin: 01/10/19 11:40 Dose: 1 tab Senna/Docusate Sodium (Senokot S 50 Mg-8.6 Mg) 2 tab PO HS [facility] Last Admin: 01/09/19 22:30 Dose: 2 tab Simethicone (Mylicon Chew Tab) 80 mg PO Q8 PRN PRN Reason: Flatulence Last Admin: 01/07/19 09:05 Dose: 80 mg Sucralfate (Carafate Oral Susp) 1 gm PO ACHS [facility] Last Admin: 01/10/19 11:40 Dose: 1 gm - Labs Labs: 01/06/19 13:56 01/06/19 13:56
[2019-01-10] MEDS ORDERED: Cephalexin Susp 250 MG/5 ML PO SCH (17:00)
--- NOTE | 2019-01-10 18:58 | CP.PCM.CON ---
History of Present Illness - History of Present Illness History of Present Illness: 73 yo female with h/o TKR and on opiates analgesics c/o generalized abdominal pian. Found to have elevated lipase though CT is negative. Having nausea and abdominal pain over the past few days. Review of Systems - Constitutional Constitutional: absent: Chills - EENT Eyes: absent: Change in Vision Nose/Mouth/Throat: absent: Nasal Congestion - Cardiovascular Cardiovascular: absent: Chest Pain - Respiratory Respiratory: absent: Cough - Gastrointestinal Gastrointestinal: As Per HPI - Neurological Neurological: absent: Dizziness Past Patient History - Past Medical History & Family History Past Medical History?: Yes - Past Social History Smoking Status: Former Smoker Alcohol: None Drugs: Denies Home Situation {Lives}: Alone (entry steps) - CARDIAC Hx Hypercholesterolemia: Yes Hx Hypertension: Yes - PULMONARY Hx Chronic Obstructive Pulmonary Disease (COPD): Yes - NEUROLOGICAL Hx Neurological Disorder: No - HEENT Hx HEENT Problems: Yes Hx Cataracts: Yes (BILAT.) - RENAL Hx Chronic Kidney Disease: No - ENDOCRINE/METABOLIC Hx Endocrine Disorders: No - HEMATOLOGICAL/ONCOLOGICAL Hx Blood Disorders: No - INTEGUMENTARY Hx Dermatological Problems: No - MUSCULOSKELETAL/RHEUMATOLOGICAL Hx Arthritis: Yes (osteoarthritis) - GASTROINTESTINAL Hx Gastrointestinal Disorders: Yes - GENITOURINARY/GYNECOLOGICAL Hx Genitourinary Disorders: Yes Other/Comment: HX: FIBROID UTERUS - PSYCHIATRIC Hx Psychophysiologic Disorder: No Hx Substance Use: No - SURGICAL HISTORY Hx Surgeries: Yes Hx Cataract Extraction: Yes (BILAT.) Hx Hysterectomy: Yes (PARTIAL HYSTERECTOMY) Other/Comment: HX: "INJECTIONS TO RIGHT HIP AND LOWER BACK FOR PAIN" - ANESTHESIA Hx Anesthesia: Yes Hx Anesthesia Reactions: No Hx Malignant Hyperthermia: No Meds Allergies/Adverse Reactions: Allergies Allergy/AdvReac Type Severity Reaction Status Date / Time aspirin Allergy Intermediate NAUSEA Verified 10/06/18 11:35 bacitracin Allergy Intermediate RASH Verified 10/06/18 11:35 [From Neosporin ([id number])] neomycin Allergy Intermediate RASH Verified 10/06/18 11:35 [From Neosporin ([id number])] polymyxin B Allergy Intermediate RASH Verified 10/06/18 11:35 [From Neosporin ([id number])] - Medications Medications: Current Medications Acetaminophen (Tylenol 325mg Tab) 975 mg PO Q8 [facility] Last Admin: 01/10/19 16:29 Dose: 975 mg Amlodipine Besylate (Norvasc) 5 mg PO DAILY [facility] Last Admin: 01/10/19 08:30 Dose: 5 mg Ascorbic Acid (Vitamin C 500 Mg Tab) 1,000 mg PO DAILY [facility] Last Admin: 01/10/19 08:29 Dose: 1,000 mg Atorvastatin Calcium (Lipitor) 10 mg PO HS [facility] Last Admin: 01/09/19 22:30 Dose: 10 mg Cephalexin Monohydrate (Keflex) 500 mg PO Q8 [facility]; Protocol Last Admin: 01/10/19 16:30 Dose: 500 mg Clonidine HCl (Catapres) 0.1 mg PO BID [facility] Last Admin: 01/10/19 17:02 Dose: 0.1 mg Ezetimibe (Zetia) 10 mg PO DAILY [facility] Last Admin: 01/10/19 08:30 Dose: 10 mg Enoxaparin Sodium (Lovenox) 40 mg SC DAILY [facility]; Protocol Ferrous Sulfate (Feosol) 325 mg PO BID [facility] Last Admin: 01/10/19 16:31 Dose: 325 mg Folic Acid (Folic Acid) 1 mg PO DAILY [facility] Last Admin: 01/10/19 08:31 Dose: 1 mg Lactated Ringer's (Lactated Ringer's) 1,000 mls @ 125 mls/hr IV .Q8H [facility] Last Admin: 01/10/19 13:14 Dose: Not Given Ketorolac Tromethamine (Toradol) 15 mg IVP Q6 PRN PRN Reason: Pain, moderate (4-7) Last Admin: 01/09/19 10:10 Dose: 15 mg Lactobacillus Acidophilus (Bacid Acidophilus) 1 cap PO DAILY [facility] Lactulose (Enulose) 20 gm PO DAILY PRN PRN Reason: Constipation Last Admin: 01/10/19 03:56 Dose: 20 gm Losartan Potassium (Cozaar) 100 mg PO DAILY [facility] Last Admin: 01/10/19 08:31 Dose: 100 mg Ondansetron HCl (Zofran Inj) 4 mg IVP Q6 PRN PRN Reason: Nausea/Vomiting Last Admin: 01/08/19 12:51 Dose: 4 mg Oxycodone/Acetaminophen (Percocet 5/325 Mg Tab) 1 tab PO Q6 PRN PRN Reason: Pain, severe (8-10) Stop: 01/10/19 20:25 Last Admin: 01/10/19 17:02 Dose: 1 tab Pantoprazole Sodium (Protonix Ec Tab) 40 mg PO DAILY [facility] Last Admin: 01/10/19 08:30 Dose: 40 mg Pyridostigmine [place] (Mestinon Tab) 30 mg PO TID [facility] Senna/Docusate Sodium (Senokot S 50 Mg-8.6 Mg) 1 tab PO DAILY [facility] Last Admin: 01/10/19 11:40 Dose: 1 tab Senna/Docusate Sodium (Senokot S 50 Mg-8.6 Mg) 2 tab PO HS [facility] Last Admin: 01/09/19 22:30 Dose: 2 tab Simethicone (Mylicon Chew Tab) 80 mg PO Q8 PRN PRN Reason: Flatulence Last Admin: 01/07/19 09:05 Dose: 80 mg Sucralfate (Carafate Oral Susp) 1 gm PO ACHS [facility] Last Admin: 01/10/19 16:30 Dose: 1 gm Physical Exam - Constitutional Appears: No Acute Distress - Head Exam Head Exam: ATRAUMATIC - Eye Exam Eye Exam: Normal appearance - ENT Exam ENT Exam: Mucous Membranes Moist - Neck Exam Neck exam: Positive for: Normal Inspection - Respiratory Exam Respiratory Exam: Clear to Auscultation Bilateral, NORMAL BREATHING PATTERN - Cardiovascular Exam Cardiovascular Exam: REGULAR RHYTHM, +S1, +S2 - GI/Abdominal Exam GI & Abdominal Exam: Normal Bowel Sounds, Soft, Tenderness Additional comments: Right sided and midabdominal tenderness Results - Vital Signs Recent Vital Signs: Last Vital Signs Temp 98.5 F 01/10/19 18:00 Pulse 67 01/10/19 18:00 Resp 20 01/10/19 18:00 BP 168/74 H 01/10/19 18:00 Pulse Ox 98 01/10/19 18:00 - Labs Result Diagrams: 01/06/19 13:56 01/06/19 13:56 - Imaging and Cardiology CT scan - abdomen Status: Report reviewed by me Abdominal x-ray Status: Image reviewed by me, Report reviewed by me Assessment & Plan (1) Abdominal pain Assessment and Plan: 73 yo female with abdominal pain and elevated lipase though normal pancreas on CT and normal WBC. Large amount of bowel gas on KUB. Will start pyridostigmine. Consider tapering opioid analgesics Status: Acute
[2019-01-11] MEDS: Sucralfate 1 gm/10 ml Oral Susp UD PO SCH ×4 (08:02→21:54)
[2019-01-11] MEDS: Docusate-Senna 50 mg-8.6 mg Tab PO SCH ×2 (08:04→21:55)
[2019-01-11] MEDS: Enoxaparin 40 mg Syringe SC SCH (08:04)
[2019-01-11] MEDS: Pantoprazole 40 mg EC Tab PO SCH (08:04)
[2019-01-11] MEDS: Lactobacillus Acidophilus 500 MU Cap PO SCH (08:08)
--- NOTE | 2019-01-11 12:59 | CP.PCM.PN ---
Subjective - Date & Time of Evaluation Date of Evaluation: 01/11/19 Time of Evaluation: 09:00 - Subjective Subjective: Patient states she is feeling much better. Her stomach pain isn't completely resolved, but it is much improved. Knee pain is mild. TOlerating PT much more now. Denies CP/SOB/dizziness. Objective - Vital Signs/Intake and Output Vital Signs (last 24 hours): Temp Pulse Resp BP Pulse Ox 98.3 F 79 20 174/75 H 95 01/11/19 08:45 01/11/19 08:45 01/11/19 08:45 01/11/19 08:45 01/11/19 08:45 - Medications Medications: Current Medications Acetaminophen (Tylenol 325mg Tab) 975 mg PO Q8 [facility] Last Admin: 01/11/19 08:02 Dose: 975 mg Amlodipine Besylate (Norvasc) 5 mg PO DAILY [facility] Last Admin: 01/11/19 08:06 Dose: 5 mg Ascorbic Acid (Vitamin C 500 Mg Tab) 1,000 mg PO DAILY [facility] Last Admin: 01/11/19 08:03 Dose: 1,000 mg Atorvastatin Calcium (Lipitor) 10 mg PO HS [facility] Last Admin: 01/10/19 21:26 Dose: 10 mg Cephalexin Monohydrate (Keflex) 500 mg PO Q8 [facility]; Protocol Last Admin: 01/11/19 08:05 Dose: 500 mg Clonidine HCl (Catapres) 0.1 mg PO BID [facility] Last Admin: 01/11/19 08:03 Dose: 0.1 mg Ezetimibe (Zetia) 10 mg PO DAILY [facility] Last Admin: 01/11/19 08:04 Dose: 10 mg Enoxaparin Sodium (Lovenox) 40 mg SC DAILY [facility]; Protocol Last Admin: 01/11/19 08:04 Dose: 40 mg Ferrous Sulfate (Feosol) 325 mg PO BID [facility] Last Admin: 01/11/19 08:03 Dose: 325 mg Folic Acid (Folic Acid) 1 mg PO DAILY [facility] Last Admin: 01/11/19 08:05 Dose: 1 mg Ketorolac Tromethamine (Toradol) 15 mg IVP Q6 PRN PRN Reason: Pain, moderate (4-7) Last Admin: 01/09/19 10:10 Dose: 15 mg Lactobacillus Acidophilus (Bacid Acidophilus) 1 cap PO DAILY [facility] Last Admin: 01/11/19 08:08 Dose: 1 cap Lactulose (Enulose) 20 gm PO DAILY PRN PRN Reason: Constipation Last Admin: 01/10/19 03:56 Dose: 20 gm Losartan Potassium (Cozaar) 100 mg PO DAILY [facility] Last Admin: 01/11/19 08:05 Dose: 100 mg Ondansetron HCl (Zofran Inj) 4 mg IVP Q6 PRN PRN Reason: Nausea/Vomiting Last Admin: 01/08/19 12:51 Dose: 4 mg Pantoprazole Sodium (Protonix Ec Tab) 40 mg PO DAILY [facility] Last Admin: 01/11/19 08:04 Dose: 40 mg Pyridostigmine [place] (Mestinon Tab) 30 mg PO TID [facility] Last Admin: 01/11/19 12:30 Dose: 30 mg Senna/Docusate Sodium (Senokot S 50 Mg-8.6 Mg) 1 tab PO DAILY [facility] Last Admin: 01/11/19 08:04 Dose: 1 tab Senna/Docusate Sodium (Senokot S 50 Mg-8.6 Mg) 2 tab PO HS [facility] Last Admin: 01/10/19 21:30 Dose: Not Given Simethicone (Mylicon Chew Tab) 80 mg PO Q8 PRN PRN Reason: Flatulence Last Admin: 01/07/19 09:05 Dose: 80 mg Sucralfate (Carafate Oral Susp) 1 gm PO ACHS [facility] Last Admin: 01/11/19 12:30 Dose: 1 gm - Labs Labs: 01/06/19 13:56 01/06/19 13:56 - Extremities Exam Additional comments: RLE: +ROM ankle/toes, sensation intact +PT/PT pulses calves soft NT neg homans dressing intact Assessment and Plan (1) Osteoarthritis of right knee Assessment & Plan: POD#12 s/p right TKR PT/OT VTE proph ortho stable d/w DR. Cagle, agrees with above Status: Acute (2) Acute blood loss anemia Status: Acute
--- NOTE | 2019-01-11 17:31 | CP.PCM.PN ---
Subjective - Date & Time of Evaluation Date of Evaluation: 01/11/19 Time of Evaluation: 17:29 - Subjective Subjective: Alysha Avalos s/p elective right TKR course complicated with pancreatitis which is resolving. Tolerating clears advance diet as tolerated per primary team UA negative for UTI US shows no signs of GB disease No acute surgical intervention warranted at this time. She is doing much better today and is smiling and looks like a different person ambulation also improved greatly Objective - Vital Signs/Intake and Output Vital Signs (last 24 hours): Temp Pulse Resp BP Pulse Ox 98.6 F 87 20 177/74 H 96 01/11/19 16:55 01/11/19 16:55 01/11/19 16:55 01/11/19 17:21 01/11/19 16:55 - Medications Medications: Current Medications Acetaminophen (Tylenol 325mg Tab) 975 mg PO Q8 [facility] Last Admin: 01/11/19 16:47 Dose: 975 mg Amlodipine Besylate (Norvasc) 5 mg PO DAILY [facility] Last Admin: 01/11/19 08:06 Dose: 5 mg Ascorbic Acid (Vitamin C 500 Mg Tab) 1,000 mg PO DAILY [facility] Last Admin: 01/11/19 08:03 Dose: 1,000 mg Atorvastatin Calcium (Lipitor) 10 mg PO HS [facility] Last Admin: 01/10/19 21:26 Dose: 10 mg Cephalexin Monohydrate (Keflex) 500 mg PO Q8 [facility]; Protocol Last Admin: 01/11/19 16:47 Dose: 500 mg Clonidine HCl (Catapres) 0.1 mg PO BID [facility] Last Admin: 01/11/19 16:48 Dose: 0.1 mg Ezetimibe (Zetia) 10 mg PO DAILY [facility] Last Admin: 01/11/19 08:04 Dose: 10 mg Enoxaparin Sodium (Lovenox) 40 mg SC DAILY [facility]; Protocol Last Admin: 01/11/19 08:04 Dose: 40 mg Ferrous Sulfate (Feosol) 325 mg PO BID [facility] Last Admin: 01/11/19 16:48 Dose: 325 mg Folic Acid (Folic Acid) 1 mg PO DAILY [facility] Last Admin: 01/11/19 08:05 Dose: 1 mg Ketorolac Tromethamine (Toradol) 15 mg IVP Q6 PRN PRN Reason: Pain, moderate (4-7) Last Admin: 01/11/19 16:50 Dose: 15 mg Lactobacillus Acidophilus (Bacid Acidophilus) 1 cap PO DAILY [facility] Last Admin: 01/11/19 08:08 Dose: 1 cap Lactulose (Enulose) 20 gm PO DAILY PRN PRN Reason: Constipation Last Admin: 01/10/19 03:56 Dose: 20 gm Losartan Potassium (Cozaar) 100 mg PO DAILY [facility] Last Admin: 01/11/19 08:05 Dose: 100 mg Ondansetron HCl (Zofran Inj) 4 mg IVP Q6 PRN PRN Reason: Nausea/Vomiting Last Admin: 01/08/19 12:51 Dose: 4 mg Pantoprazole Sodium (Protonix Ec Tab) 40 mg PO DAILY [facility] Last Admin: 01/11/19 08:04 Dose: 40 mg Pyridostigmine [place] (Mestinon Tab) 30 mg PO TID [facility] Last Admin: 01/11/19 12:30 Dose: 30 mg Senna/Docusate Sodium (Senokot S 50 Mg-8.6 Mg) 1 tab PO DAILY [facility] Last Admin: 01/11/19 08:04 Dose: 1 tab Senna/Docusate Sodium (Senokot S 50 Mg-8.6 Mg) 2 tab PO HS [facility] Last Admin: 01/10/19 21:30 Dose: Not Given Simethicone (Mylicon Chew Tab) 80 mg PO Q8 PRN PRN Reason: Flatulence Last Admin: 01/07/19 09:05 Dose: 80 mg Sucralfate (Carafate Oral Susp) 1 gm PO ACHS [facility] Last Admin: 01/11/19 16:47 Dose: 1 gm - Labs Labs: 01/06/19 13:56 01/06/19 13:56 - Constitutional Appears: Well, Non-toxic, No Acute Distress - Head Exam Head Exam: ATRAUMATIC, NORMAL INSPECTION, NORMOCEPHALIC - Eye Exam Eye Exam: EOMI - ENT Exam ENT Exam: Mucous Membranes Moist - Respiratory Exam Respiratory Exam: NORMAL BREATHING PATTERN - Cardiovascular Exam Cardiovascular Exam: REGULAR RHYTHM - GI/Abdominal Exam GI & Abdominal Exam: absent: Distended - Neurological Exam Neurological Exam: Alert, Awake, CN II-XII Intact - Psychiatric Exam Psychiatric exam: Normal Affect, Normal Mood - Skin Skin Exam: Warm Assessment and Plan - Assessment and Plan (Free Text) Assessment: Patient is s/p right TKR 12/30/18 and has finally turned a corner set for d/c home 01/13/19 pain controlled much better very happy.
--- NOTE | 2019-01-11 21:00 | CP.PCM.PN ---
Subjective - Date & Time of Evaluation Date of Evaluation: 01/11/19 Time of Evaluation: 12:00 - Subjective Subjective: Much more comfortable today.Off opioid analgesics. Objective - Vital Signs/Intake and Output Vital Signs (last 24 hours): Temp Pulse Resp BP Pulse Ox 98.6 F 87 20 177/74 H 96 01/11/19 16:55 01/11/19 16:55 01/11/19 16:55 01/11/19 17:21 01/11/19 16:55 - Medications Medications: Current Medications Acetaminophen (Tylenol 325mg Tab) 975 mg PO Q8 [facility] Last Admin: 01/11/19 16:47 Dose: 975 mg Amlodipine Besylate (Norvasc) 5 mg PO DAILY [facility] Last Admin: 01/11/19 08:06 Dose: 5 mg Ascorbic Acid (Vitamin C 500 Mg Tab) 1,000 mg PO DAILY [facility] Last Admin: 01/11/19 08:03 Dose: 1,000 mg Atorvastatin Calcium (Lipitor) 10 mg PO HS [facility] Last Admin: 01/10/19 21:26 Dose: 10 mg Cephalexin Monohydrate (Keflex) 500 mg PO Q8 [facility]; Protocol Last Admin: 01/11/19 16:47 Dose: 500 mg Clonidine HCl (Catapres) 0.1 mg PO BID [facility] Last Admin: 01/11/19 16:48 Dose: 0.1 mg Ezetimibe (Zetia) 10 mg PO DAILY [facility] Last Admin: 01/11/19 08:04 Dose: 10 mg Enoxaparin Sodium (Lovenox) 40 mg SC DAILY [facility]; Protocol Last Admin: 01/11/19 08:04 Dose: 40 mg Ferrous Sulfate (Feosol) 325 mg PO BID [facility] Last Admin: 01/11/19 16:48 Dose: 325 mg Folic Acid (Folic Acid) 1 mg PO DAILY [facility] Last Admin: 01/11/19 08:05 Dose: 1 mg Ketorolac Tromethamine (Toradol) 15 mg IVP Q6 PRN PRN Reason: Pain, moderate (4-7) Last Admin: 01/11/19 16:50 Dose: 15 mg Lactobacillus Acidophilus (Bacid Acidophilus) 1 cap PO DAILY [facility] Last Admin: 01/11/19 08:08 Dose: 1 cap Lactulose (Enulose) 20 gm PO DAILY PRN PRN Reason: Constipation Last Admin: 01/10/19 03:56 Dose: 20 gm Losartan Potassium (Cozaar) 100 mg PO DAILY [facility] Last Admin: 01/11/19 08:05 Dose: 100 mg Ondansetron HCl (Zofran Inj) 4 mg IVP Q6 PRN PRN Reason: Nausea/Vomiting Last Admin: 01/08/19 12:51 Dose: 4 mg Pantoprazole Sodium (Protonix Ec Tab) 40 mg PO DAILY [facility] Last Admin: 01/11/19 08:04 Dose: 40 mg Pyridostigmine [place] (Mestinon Tab) 30 mg PO TID [facility] Last Admin: 01/11/19 19:13 Dose: Not Given Senna/Docusate Sodium (Senokot S 50 Mg-8.6 Mg) 1 tab PO DAILY [facility] Last Admin: 01/11/19 08:04 Dose: 1 tab Senna/Docusate Sodium (Senokot S 50 Mg-8.6 Mg) 2 tab PO HS [facility] Last Admin: 01/10/19 21:30 Dose: Not Given Simethicone (Mylicon Chew Tab) 80 mg PO Q8 PRN PRN Reason: Flatulence Last Admin: 01/07/19 09:05 Dose: 80 mg Sucralfate (Carafate Oral Susp) 1 gm PO ACHS [facility] Last Admin: 01/11/19 16:47 Dose: 1 gm - Labs Labs: 01/06/19 13:56 01/06/19 13:56 - Head Exam Head Exam: ATRAUMATIC - Eye Exam Eye Exam: Normal appearance Pupil Exam: PERRL - ENT Exam ENT Exam: Normal Exam - Neck Exam Neck Exam: Normal Inspection - Cardiovascular Exam Cardiovascular Exam: REGULAR RHYTHM - GI/Abdominal Exam GI & Abdominal Exam: Soft, Normal Bowel Sounds. absent: Tenderness Assessment and Plan (1) Abdominal pain Assessment & Plan: Patient with elevated lipase earlier though no CT evidence of pancreatic inflammation and normal WBC. Has been better since yesterday when opioid analgesia has been stopped, bowel stimulants given, and increased ambulation encouraged. Continue current treatment. Status: Acute
[2019-01-12] MEDS: Sucralfate 1 gm/10 ml Oral Susp UD PO SCH ×4 (06:47→21:23)
[2019-01-12] MEDS: Lactobacillus Acidophilus 500 MU Cap PO SCH (09:08)
[2019-01-12] MEDS: Enoxaparin 40 mg Syringe SC SCH (09:09)
[2019-01-12] MEDS: Docusate-Senna 50 mg-8.6 mg Tab PO SCH ×2 (09:12→21:24)
[2019-01-12] MEDS: Pantoprazole 40 mg EC Tab PO SCH (09:12)
--- NOTE | 2019-01-12 14:25 | CP.PCM.PN ---
Subjective - Date & Time of Evaluation Date of Evaluation: 01/12/19 Time of Evaluation: 11:00 - Subjective Subjective: Patient seen and examined OOB with PT. Pain is well controlled. Abd pain much improved, on liquid diet, narcotics use significantly reduced. Ambulating with cane. Objective - Vital Signs/Intake and Output Vital Signs (last 24 hours): Temp Pulse Resp BP Pulse Ox 98.5 F 68 20 171/67 H 97 01/12/19 08:18 01/12/19 08:18 01/12/19 08:18 01/12/19 08:18 01/12/19 08:18 - Medications Medications: Current Medications Acetaminophen (Tylenol 325mg Tab) 975 mg PO Q8 [facility] Last Admin: 01/12/19 09:15 Dose: 975 mg Amlodipine Besylate (Norvasc) 5 mg PO DAILY [facility] Last Admin: 01/12/19 09:12 Dose: 5 mg Ascorbic Acid (Vitamin C 500 Mg Tab) 1,000 mg PO DAILY [facility] Last Admin: 01/12/19 09:10 Dose: 1,000 mg Atorvastatin Calcium (Lipitor) 10 mg PO HS [facility] Last Admin: 01/11/19 21:54 Dose: 10 mg Cephalexin Monohydrate (Keflex) 500 mg PO Q8 [facility]; Protocol Last Admin: 01/12/19 09:11 Dose: 500 mg Clonidine HCl (Catapres) 0.1 mg PO BID [facility] Last Admin: 01/12/19 09:13 Dose: 0.1 mg Ezetimibe (Zetia) 10 mg PO DAILY [facility] Last Admin: 01/12/19 09:11 Dose: 10 mg Enoxaparin Sodium (Lovenox) 40 mg SC DAILY [facility]; Protocol Last Admin: 01/12/19 09:09 Dose: 40 mg Ferrous Sulfate (Feosol) 325 mg PO BID [facility] Last Admin: 01/12/19 09:11 Dose: 325 mg Folic Acid (Folic Acid) 1 mg PO DAILY [facility] Last Admin: 01/12/19 09:11 Dose: 1 mg Ketorolac Tromethamine (Toradol) 15 mg IVP Q6 PRN PRN Reason: Pain, moderate (4-7) Last Admin: 01/11/19 16:50 Dose: 15 mg Lactobacillus Acidophilus (Bacid Acidophilus) 1 cap PO DAILY [facility] Last Admin: 01/12/19 09:08 Dose: 1 cap Lactulose (Enulose) 20 gm PO DAILY PRN PRN Reason: Constipation Last Admin: 01/10/19 03:56 Dose: 20 gm Losartan Potassium (Cozaar) 100 mg PO DAILY [facility] Last Admin: 01/12/19 09:10 Dose: 100 mg Ondansetron HCl (Zofran Inj) 4 mg IVP Q6 PRN PRN Reason: Nausea/Vomiting Last Admin: 01/08/19 12:51 Dose: 4 mg Pantoprazole Sodium (Protonix Ec Tab) 40 mg PO DAILY [facility] Last Admin: 01/12/19 09:12 Dose: 40 mg Pyridostigmine [place] (Mestinon Tab) 30 mg PO TID [facility] Last Admin: 01/12/19 13:06 Dose: 30 mg Senna/Docusate Sodium (Senokot S 50 Mg-8.6 Mg) 1 tab PO DAILY [facility] Last Admin: 01/12/19 09:12 Dose: 1 tab Senna/Docusate Sodium (Senokot S 50 Mg-8.6 Mg) 2 tab PO HS [facility] Last Admin: 01/11/19 21:55 Dose: Not Given Simethicone (Mylicon Chew Tab) 80 mg PO Q8 PRN PRN Reason: Flatulence Last Admin: 01/07/19 09:05 Dose: 80 mg Sucralfate (Carafate Oral Susp) 1 gm PO ACHS [facility] Last Admin: 01/12/19 13:06 Dose: 1 gm - Labs Labs: 01/06/19 13:56 01/06/19 13:56 - Extremities Exam Additional comments: R knee: [place] CDI minimal knee tenderness ROM 0-80 deg measured by goniometer sensation intact SP/DP/TN motor intact EHL/FHL/TA/G/Q/HS pedal pulse intact calves soft NT Assessment and Plan (1) Status post total right knee replacement Assessment & Plan: POD#13 s/p R TKA -GI/Gen surg on board, rec's appreciated -PT/OT -CPM/knee imm as per order -DVT ppx -above d/w Dr. Hinkle in agreement Status: Acute
--- NOTE | 2019-01-12 18:47 | CP.PCM.PN ---
Subjective - Date & Time of Evaluation Date of Evaluation: 01/12/19 Objective - Vital Signs/Intake and Output Vital Signs (last 24 hours): Temp Pulse Resp BP Pulse Ox 98.7 F 72 20 168/73 H 97 01/12/19 16:50 01/12/19 16:50 01/12/19 16:50 01/12/19 16:50 01/12/19 16:50 - Medications Medications: Current Medications Acetaminophen (Tylenol 325mg Tab) 975 mg PO Q8 [facility] Last Admin: 01/12/19 17:08 Dose: 975 mg Amlodipine Besylate (Norvasc) 5 mg PO DAILY [facility] Last Admin: 01/12/19 09:12 Dose: 5 mg Ascorbic Acid (Vitamin C 500 Mg Tab) 1,000 mg PO DAILY [facility] Last Admin: 01/12/19 09:10 Dose: 1,000 mg Atorvastatin Calcium (Lipitor) 10 mg PO HS [facility] Last Admin: 01/11/19 21:54 Dose: 10 mg Cephalexin Monohydrate (Keflex) 500 mg PO Q8 [facility]; Protocol Last Admin: 01/12/19 17:11 Dose: 500 mg Clonidine HCl (Catapres) 0.1 mg PO BID [facility] Last Admin: 01/12/19 17:10 Dose: 0.1 mg Ezetimibe (Zetia) 10 mg PO DAILY [facility] Last Admin: 01/12/19 09:11 Dose: 10 mg Enoxaparin Sodium (Lovenox) 40 mg SC DAILY [facility]; Protocol Last Admin: 01/12/19 09:09 Dose: 40 mg Ferrous Sulfate (Feosol) 325 mg PO BID [facility] Last Admin: 01/12/19 17:10 Dose: 325 mg Folic Acid (Folic Acid) 1 mg PO DAILY [facility] Last Admin: 01/12/19 09:11 Dose: 1 mg Ketorolac Tromethamine (Toradol) 15 mg IVP Q6 PRN PRN Reason: Pain, moderate (4-7) Last Admin: 01/11/19 16:50 Dose: 15 mg Lactobacillus Acidophilus (Bacid Acidophilus) 1 cap PO DAILY [facility] Last Admin: 01/12/19 09:08 Dose: 1 cap Lactulose (Enulose) 20 gm PO DAILY PRN PRN Reason: Constipation Last Admin: 01/10/19 03:56 Dose: 20 gm Losartan Potassium (Cozaar) 100 mg PO DAILY [facility] Last Admin: 01/12/19 09:10 Dose: 100 mg Ondansetron HCl (Zofran Inj) 4 mg IVP Q6 PRN PRN Reason: Nausea/Vomiting Last Admin: 01/08/19 12:51 Dose: 4 mg Pantoprazole Sodium (Protonix Ec Tab) 40 mg PO DAILY [facility] Last Admin: 01/12/19 09:12 Dose: 40 mg Pyridostigmine [place] (Mestinon Tab) 30 mg PO TID [facility] Last Admin: 01/12/19 17:11 Dose: 30 mg Senna/Docusate Sodium (Senokot S 50 Mg-8.6 Mg) 1 tab PO DAILY [facility] Last Admin: 01/12/19 09:12 Dose: 1 tab Senna/Docusate Sodium (Senokot S 50 Mg-8.6 Mg) 2 tab PO HS [facility] Last Admin: 01/11/19 21:55 Dose: Not Given Simethicone (Mylicon Chew Tab) 80 mg PO Q8 PRN PRN Reason: Flatulence Last Admin: 01/07/19 09:05 Dose: 80 mg Sucralfate (Carafate Oral Susp) 1 gm PO ACHS [facility] Last Admin: 01/12/19 17:10 Dose: 1 gm - Labs Labs: 01/06/19 13:56 01/06/19 13:56 Assessment and Plan (1) Abdominal pain Status: Acute (2) Acute blood loss anemia Status: Acute (3) Status post total right knee replacement Status: Acute
--- NOTE | 2019-01-12 18:47 | CP.PCM.PN ---
Subjective - Date & Time of Evaluation Date of Evaluation: 01/11/19 Objective - Vital Signs/Intake and Output Vital Signs (last 24 hours): Temp Pulse Resp BP Pulse Ox 98.7 F 72 20 168/73 H 97 01/12/19 16:50 01/12/19 16:50 01/12/19 16:50 01/12/19 16:50 01/12/19 16:50 - Medications Medications: Current Medications Acetaminophen (Tylenol 325mg Tab) 975 mg PO Q8 [facility] Last Admin: 01/12/19 17:08 Dose: 975 mg Amlodipine Besylate (Norvasc) 5 mg PO DAILY [facility] Last Admin: 01/12/19 09:12 Dose: 5 mg Ascorbic Acid (Vitamin C 500 Mg Tab) 1,000 mg PO DAILY [facility] Last Admin: 01/12/19 09:10 Dose: 1,000 mg Atorvastatin Calcium (Lipitor) 10 mg PO HS [facility] Last Admin: 01/11/19 21:54 Dose: 10 mg Cephalexin Monohydrate (Keflex) 500 mg PO Q8 [facility]; Protocol Last Admin: 01/12/19 17:11 Dose: 500 mg Clonidine HCl (Catapres) 0.1 mg PO BID [facility] Last Admin: 01/12/19 17:10 Dose: 0.1 mg Ezetimibe (Zetia) 10 mg PO DAILY [facility] Last Admin: 01/12/19 09:11 Dose: 10 mg Enoxaparin Sodium (Lovenox) 40 mg SC DAILY [facility]; Protocol Last Admin: 01/12/19 09:09 Dose: 40 mg Ferrous Sulfate (Feosol) 325 mg PO BID [facility] Last Admin: 01/12/19 17:10 Dose: 325 mg Folic Acid (Folic Acid) 1 mg PO DAILY [facility] Last Admin: 01/12/19 09:11 Dose: 1 mg Ketorolac Tromethamine (Toradol) 15 mg IVP Q6 PRN PRN Reason: Pain, moderate (4-7) Last Admin: 01/11/19 16:50 Dose: 15 mg Lactobacillus Acidophilus (Bacid Acidophilus) 1 cap PO DAILY [facility] Last Admin: 01/12/19 09:08 Dose: 1 cap Lactulose (Enulose) 20 gm PO DAILY PRN PRN Reason: Constipation Last Admin: 01/10/19 03:56 Dose: 20 gm Losartan Potassium (Cozaar) 100 mg PO DAILY [facility] Last Admin: 01/12/19 09:10 Dose: 100 mg Ondansetron HCl (Zofran Inj) 4 mg IVP Q6 PRN PRN Reason: Nausea/Vomiting Last Admin: 01/08/19 12:51 Dose: 4 mg Pantoprazole Sodium (Protonix Ec Tab) 40 mg PO DAILY [facility] Last Admin: 01/12/19 09:12 Dose: 40 mg Pyridostigmine [place] (Mestinon Tab) 30 mg PO TID [facility] Last Admin: 01/12/19 17:11 Dose: 30 mg Senna/Docusate Sodium (Senokot S 50 Mg-8.6 Mg) 1 tab PO DAILY [facility] Last Admin: 01/12/19 09:12 Dose: 1 tab Senna/Docusate Sodium (Senokot S 50 Mg-8.6 Mg) 2 tab PO HS [facility] Last Admin: 01/11/19 21:55 Dose: Not Given Simethicone (Mylicon Chew Tab) 80 mg PO Q8 PRN PRN Reason: Flatulence Last Admin: 01/07/19 09:05 Dose: 80 mg Sucralfate (Carafate Oral Susp) 1 gm PO ACHS [facility] Last Admin: 01/12/19 17:10 Dose: 1 gm - Labs Labs: 01/06/19 13:56 01/06/19 13:56 Assessment and Plan (1) Abdominal pain Status: Acute (2) Acute blood loss anemia Status: Acute (3) Status post total right knee replacement Status: Acute
[2019-01-12 20:12] VITALS: PULSE 65; TEMP 98.9; O2SAT 98
--- NOTE | 2019-01-13 00:41 | CP.PCM.PN ---
Subjective - Date & Time of Evaluation Date of Evaluation: 01/12/19 Time of Evaluation: 17:00 - Subjective Subjective: Patient with lower abdominal discomfort today. Is increasing ambulation. Objective - Vital Signs/Intake and Output Vital Signs (last 24 hours): Temp Pulse Resp BP Pulse Ox 98.9 F 65 20 154/69 H 98 01/12/19 20:11 01/12/19 20:11 01/12/19 20:11 01/12/19 20:11 01/12/19 20:11 - Medications Medications: Current Medications Acetaminophen (Tylenol 325mg Tab) 975 mg PO Q8 [facility] Last Admin: 01/12/19 17:08 Dose: 975 mg Amlodipine Besylate (Norvasc) 5 mg PO DAILY [facility] Last Admin: 01/12/19 09:12 Dose: 5 mg Ascorbic Acid (Vitamin C 500 Mg Tab) 1,000 mg PO DAILY [facility] Last Admin: 01/12/19 09:10 Dose: 1,000 mg Atorvastatin Calcium (Lipitor) 10 mg PO HS [facility] Last Admin: 01/12/19 21:23 Dose: 10 mg Cephalexin Monohydrate (Keflex) 500 mg PO Q8 [facility]; Protocol Last Admin: 01/12/19 17:11 Dose: 500 mg Clonidine HCl (Catapres) 0.1 mg PO BID [facility] Last Admin: 01/12/19 17:10 Dose: 0.1 mg Ezetimibe (Zetia) 10 mg PO DAILY [facility] Last Admin: 01/12/19 09:11 Dose: 10 mg Enoxaparin Sodium (Lovenox) 40 mg SC DAILY [facility]; Protocol Last Admin: 01/12/19 09:09 Dose: 40 mg Ferrous Sulfate (Feosol) 325 mg PO BID [facility] Last Admin: 01/12/19 17:10 Dose: 325 mg Folic Acid (Folic Acid) 1 mg PO DAILY [facility] Last Admin: 01/12/19 09:11 Dose: 1 mg Ketorolac Tromethamine (Toradol) 15 mg IVP Q6 PRN PRN Reason: Pain, moderate (4-7) Last Admin: 01/12/19 21:26 Dose: 15 mg Lactobacillus Acidophilus (Bacid Acidophilus) 1 cap PO DAILY [facility] Last Admin: 01/12/19 09:08 Dose: 1 cap Lactulose (Enulose) 20 gm PO DAILY PRN PRN Reason: Constipation Last Admin: 01/10/19 03:56 Dose: 20 gm Losartan Potassium (Cozaar) 100 mg PO DAILY [facility] Last Admin: 01/12/19 09:10 Dose: 100 mg Ondansetron HCl (Zofran Inj) 4 mg IVP Q6 PRN PRN Reason: Nausea/Vomiting Last Admin: 01/08/19 12:51 Dose: 4 mg Pantoprazole Sodium (Protonix Ec Tab) 40 mg PO DAILY [facility] Last Admin: 01/12/19 09:12 Dose: 40 mg Pyridostigmine [place] (Mestinon Tab) 30 mg PO TID [facility] Last Admin: 01/12/19 17:11 Dose: 30 mg Senna/Docusate Sodium (Senokot S 50 Mg-8.6 Mg) 1 tab PO DAILY [facility] Last Admin: 01/12/19 09:12 Dose: 1 tab Senna/Docusate Sodium (Senokot S 50 Mg-8.6 Mg) 2 tab PO HS [facility] Last Admin: 01/12/19 21:24 Dose: Not Given Simethicone (Mylicon Chew Tab) 80 mg PO Q8 PRN PRN Reason: Flatulence Last Admin: 01/07/19 09:05 Dose: 80 mg Sucralfate (Carafate Oral Susp) 1 gm PO ACHS [facility] Last Admin: 01/12/19 21:23 Dose: 1 gm - Labs Labs: 01/06/19 13:56 01/06/19 13:56 - Head Exam Head Exam: NORMAL INSPECTION - Eye Exam Eye Exam: Normal appearance - ENT Exam ENT Exam: Normal Exam - Neck Exam Neck Exam: Full ROM - Cardiovascular Exam Cardiovascular Exam: REGULAR RHYTHM - GI/Abdominal Exam GI & Abdominal Exam: Distended, Normal Bowel Sounds Assessment and Plan (1) Abdominal pain Assessment & Plan: KUB shows large amount of gaasseous bowel distention. Continue ambulation and bowel stimulants. Status: Acute
[2019-01-13] MEDS: Sucralfate 1 gm/10 ml Oral Susp UD PO SCH (06:38)
[2019-01-13 08:18] VITALS: BP 188/60
[2019-01-13] MEDS: Lactobacillus Acidophilus 500 MU Cap PO SCH (08:22)
[2019-01-13] MEDS: Enoxaparin 40 mg Syringe SC SCH (08:23)
[2019-01-13] MEDS: Docusate-Senna 50 mg-8.6 mg Tab PO SCH (08:24)
[2019-01-13] MEDS: Pantoprazole 40 mg EC Tab PO SCH (08:25)
--- NOTE | 2019-01-13 11:46 | CP.PCM.DIS ---
Provider - Provider Date of Admission: 01/03/19 06:57 Attending physician: Javan Hernandez MD Consults: 01/03/19 11:20 Physiatry Consult Routine Comment: Consulting Provider: Dixon Dominguez Consulting Physician: Dixon Dominguez Reason for Consult: R TKR 01/05/19 09:53 Orthopedic Consult Routine Comment: Consulting Provider: Rick Dunlap Consulting Physician: Rick Dunlap Reason for Consult: postop ortho mgmt 01/07/19 18:23 General Surgery Consult Routine Comment: Consulting Provider: Iggy Colunga Consulting Physician: Iggy Colunga Reason for Consult: postop abdominal pain/N/V, 01/10/19 14:35 Gastroenterology Consult Routine Comment: Consulting Provider: Agustin Veliz Consulting Physician: Agustin Veliz Reason for Consult: elevated lipase Time Spent in preparation of Discharge (in minutes): 25 Diagnosis - Discharge Diagnosis (1) Abdominal pain Status: Acute (2) Acute blood loss anemia Status: Acute (3) Status post total right knee replacement Status: Acute Priority: High Hospital Course - Lab Results Lab Results: Micro Results 01/03/19 21:10 Urine,Clean Catch Urine Culture - Final No Growth (<1,000 CFU/ML) Most Recent Lab Values WBC 8.7 K/uL (4.8-10.8) 01/06/19 13:56 RBC 3.08 Mil/uL (3.80-5.20) L 01/06/19 13:56 Hgb 8.3 g/dL (12.0-16.0) L 01/06/19 13:56 Hct 25.5 % (34.0-47.0) L 01/06/19 13:56 MCV 82.8 fl (81.0-99.0) 01/06/19 13:56 MCH 27.0 pg (27.0-31.0) 01/06/19 13:56 MCHC 32.7 g/dL (33.0-37.0) L 01/06/19 13:56 RDW 13.7 % (11.5-14.5) 01/06/19 13:56 Plt Count 365 K/uL (130-400) 01/06/19 13:56 MPV 8.0 fl (7.2-11.7) 01/06/19 13:56 Neut % (Auto) 71.7 % (50.0-75.0) 01/06/19 13:56 Lymph % (Auto) 11.0 % (20.0-40.0) L 01/06/19 13:56 [place] % (Auto) 15.8 % (0.0-10.0) H 01/06/19 13:56 Eos % (Auto) 0.8 % (0.0-4.0) 01/06/19 13:56 Baso % (Auto) 0.7 % (0.0-2.0) 01/06/19 13:56 Neut # (Auto) 6.2 K/uL (1.8-7.0) 01/06/19 13:56 Lymph # (Auto) 1.0 K/uL (1.0-4.3) 01/06/19 13:56 [place] # (Auto) 1.4 K/uL (0.0-0.8) H 01/06/19 13:56 Eos # (Auto) 0.1 K/uL (0.0-0.7) 01/06/19 13:56 Baso # (Auto) 0.1 K/uL (0.0-0.2) 01/06/19 13:56 Sodium 133 mmol/l (132-148) 01/06/19 13:56 Potassium 3.8 MMOL/L (3.6-5.0) 01/06/19 13:56 Chloride 95 mmol/L (98-107) L 01/06/19 13:56 Carbon Dioxide 31 mmol/L (22-30) H 01/06/19 13:56 Anion Gap 11 (10-20) 01/06/19 13:56 BUN 25 mg/dl (7-17) H 01/06/19 13:56 Creatinine 1.2 mg/dl (0.7-1.2) 01/06/19 13:56 Est GFR ( Amer) 54 01/06/19 13:56 Est GFR (Non-Af Amer) 44 01/06/19 13:56 Random Glucose 112 mg/dL (65-105) H 01/06/19 13:56 Calcium 8.6 mg/dL (8.4-10.2) 01/06/19 13:56 Total Bilirubin 0.8 mg/dl (0.2-1.3) 01/06/19 13:56 AST 68 U/L (14-36) H D 01/06/19 13:56 ALT 44 U/L (9-52) 01/06/19 13:56 Alkaline Phosphatase 138 U/L (38-126) H D 01/06/19 13:56 Total Protein 6.2 G/DL (6.3-8.2) L 01/06/19 13:56 Albumin 3.0 g/dL (3.5-5.0) L 01/06/19 13:56 Globulin 3.2 gm/dL (2.2-3.9) 01/06/19 13:56 Albumin/Globulin Ratio 0.9 (1.0-2.1) L 01/06/19 13:56 Lipase 470 U/L (23-300) H 01/07/19 05:46 25-OH Vitamin D Total 36.0 NG/ML (30.0-100.0) 01/05/19 12:05 Urine Color Yellow (YELLOW) 01/08/19 20:44 Urine Clarity Slighty-cloudy (Clear) 01/08/19 20:44 Urine pH 6.0 (5.0-8.0) 01/08/19 20:44 Ur Specific [place] 1.010 (1.003-1.030) 01/08/19 20:44 Urine Protein Negative mg/dL (NEGATIVE) 01/08/19 20:44 Urine Glucose (UA) Neg mg/dL (NEGATIVE) 01/08/19 20:44 Urine Ketones Negative mg/dL (NEGATIVE) 01/08/19 20:44 Urine Blood Negative (NEGATIVE) 01/08/19 20:44 Urine Nitrate Negative (NEGATIVE) 01/08/19 20:44 Urine Bilirubin Negative (NEGATIVE) 01/08/19 20:44 Urine Urobilinogen 0.2-1.0 mg/dL (0.2-1.0) 01/08/19 20:44 Ur Leukocyte Esterase Neg [place]/uL (Negative) 01/08/19 20:44 Urine RBC (Auto) 3 /hpf (0-3) 01/08/19 20:44 Urine Microscopic WBC 4 /hpf (0-5) 01/08/19 20:44 Ur Squamous Epith Cells 6 /hpf (0-5) H 01/08/19 20:44 Urine Bacteria Rare (<OCC) 01/03/19 21:10 Discharge Exam - Head Exam Head Exam: NORMAL INSPECTION Discharge Plan - Follow Up Plan Condition: GOOD Disposition: DISCHARGED TO HOME CARE Instructions: Total Knee Replacement (DC)
--- NOTE | 2019-01-13 12:33 | CP.PCM.PN ---
Subjective - Date & Time of Evaluation Date of Evaluation: 01/13/19 Time of Evaluation: 11:00 - Subjective Subjective: Patient seen and examined at bedside. Pain continues to improve inn regards to abdomen and R knee. Scheduled to discharge home today. Objective - Vital Signs/Intake and Output Vital Signs (last 24 hours): Temp Pulse Resp BP Pulse Ox 98.9 F 65 20 188/60 H 98 01/13/19 08:17 01/13/19 08:24 01/13/19 08:17 01/13/19 08:24 01/13/19 08:17 - Medications Medications: Current Medications Acetaminophen (Tylenol 325mg Tab) 975 mg PO Q8 [facility] Last Admin: 01/13/19 08:28 Dose: 975 mg Amlodipine Besylate (Norvasc) 5 mg PO DAILY [facility] Last Admin: 01/13/19 08:24 Dose: 5 mg Ascorbic Acid (Vitamin C 500 Mg Tab) 1,000 mg PO DAILY [facility] Last Admin: 01/13/19 08:24 Dose: 1,000 mg Atorvastatin Calcium (Lipitor) 10 mg PO HS [facility] Last Admin: 01/12/19 21:23 Dose: 10 mg Cephalexin Monohydrate (Keflex) 500 mg PO Q8 [facility]; Protocol Last Admin: 01/13/19 08:24 Dose: 500 mg Clonidine HCl (Catapres) 0.1 mg PO BID [facility] Last Admin: 01/13/19 08:24 Dose: 0.1 mg Ezetimibe (Zetia) 10 mg PO DAILY [facility] Last Admin: 01/13/19 08:24 Dose: 10 mg Enoxaparin Sodium (Lovenox) 40 mg SC DAILY [facility]; Protocol Last Admin: 01/13/19 08:23 Dose: 40 mg Ferrous Sulfate (Feosol) 325 mg PO BID [facility] Last Admin: 01/13/19 08:25 Dose: 325 mg Folic Acid (Folic Acid) 1 mg PO DAILY [facility] Last Admin: 01/13/19 08:25 Dose: 1 mg Ketorolac Tromethamine (Toradol) 15 mg IVP Q6 PRN PRN Reason: Pain, moderate (4-7) Last Admin: 01/12/19 21:26 Dose: 15 mg Lactobacillus Acidophilus (Bacid Acidophilus) 1 cap PO DAILY [facility] Last Admin: 01/13/19 08:22 Dose: 1 cap Lactulose (Enulose) 20 gm PO DAILY PRN PRN Reason: Constipation Last Admin: 01/10/19 03:56 Dose: 20 gm Losartan Potassium (Cozaar) 100 mg PO DAILY [facility] Last Admin: 01/13/19 08:23 Dose: 100 mg Ondansetron HCl (Zofran Inj) 4 mg IVP Q6 PRN PRN Reason: Nausea/Vomiting Last Admin: 01/08/19 12:51 Dose: 4 mg Pantoprazole Sodium (Protonix Ec Tab) 40 mg PO DAILY [facility] Last Admin: 01/13/19 08:25 Dose: 40 mg Pyridostigmine [place] (Mestinon Tab) 30 mg PO TID [facility] Last Admin: 01/13/19 08:23 Dose: 30 mg Senna/Docusate Sodium (Senokot S 50 Mg-8.6 Mg) 1 tab PO DAILY [facility] Last Admin: 01/13/19 08:24 Dose: 1 tab Senna/Docusate Sodium (Senokot S 50 Mg-8.6 Mg) 2 tab PO HS [facility] Last Admin: 01/12/19 21:24 Dose: Not Given Simethicone (Mylicon Chew Tab) 80 mg PO Q8 PRN PRN Reason: Flatulence Last Admin: 01/07/19 09:05 Dose: 80 mg Sucralfate (Carafate Oral Susp) 1 gm PO ACHS [facility] Last Admin: 01/13/19 06:38 Dose: 1 gm - Labs Labs: 01/06/19 13:56 01/06/19 13:56 - Extremities Exam Additional comments: R knee: Dressings CDI minimal knee tenderness ROM 0-85 deg sensation intact SP/DP/TN motor intact EHL/FHL/TA/G/Q/HS pedal pulse intact calves soft NT Assessment and Plan (1) Status post total right knee replacement Assessment & Plan: POD#14 s/p R TKA -PT/OT -CPM/knee imm as per order -DVT ppx -orthopedically stable for discharge to home, outpt. PT scheduled for tomorrow -f/u in office within 7-10 days -above d/w Dr. Hinkle in agreement Status: Acute
--- NOTE | 2019-01-14 11:30 | RAD ---
Date of service: 01/12/2019 HISTORY: Abdominal pain COMPARISON: Abdomen radiographs 01/04/2019. TECHNIQUE: 1 view obtained. FINDINGS: BOWEL: There is a nonobstructive bowel gas pattern identified once again. Scattered gas is seen within upper abdominal large-bowel loops sparing the rectum once again. Rectal retained fecal material is diminished in the interval. No prominent free intrarenal gas is seen in this single supine abdomen radiograph. No interval abnormal intra-abdominal calcifications appreciable this time either. Urinary bladder distension is suspected. Clinically correlate further. BONES: Normal. OTHER FINDINGS: None. IMPRESSION: No definitive bowel obstruction appreciable. No gross free intra peritoneal gas collection identified. Urinary bladder distension is suspected.
== END 2019-01-13 13:37 | disposition home health service (06) | DRG 559 ==
LOC: H.TCU 01-03 06:57
PROVIDERS: ADMIT Internal Medicine; ATTEND Internal Medicine
PROC: F07Z9FZ Gait Training/Functional Ambulation Treatment using Assistive, Adaptive, Supportive or Protective Equipment (ICD-10-PCS; principal; 2019-01-03)
PROC: F08Z4FZ Home Management Treatment using Assistive, Adaptive, Supportive or Protective Equipment (ICD-10-PCS; 2019-01-03)
PROC: F07L6FZ Therapeutic Exercise Treatment of Musculoskeletal System - Lower Back / Lower Extremity using Assistive, Adaptive, Supportive or Protective Equipment (ICD-10-PCS; 2019-01-04)
DX: Z47.1 Aftercare following joint replacement surgery (principal); K85.90 Acute pancreatitis without necrosis or infection, unspecified; D62 Acute posthemorrhagic anemia; Z96.651 Presence of right artificial knee joint; K29.00 Acute gastritis without bleeding; M17.11 Unilateral primary osteoarthritis, right knee; I10 Essential (primary) hypertension; E78.5 Hyperlipidemia, unspecified; E78.00 Pure hypercholesterolemia, unspecified; J44.9 Chronic obstructive pulmonary disease, unspecified; K59.00 Constipation, unspecified; Z87.891 Personal history of nicotine dependence; Z90.711 Acquired absence of uterus with remaining cervical stump; Z88.6 Allergy status to analgesic agent; Z88.3 Allergy status to other anti-infective agents